=== PATIENT | female | born 1935 | race Caucasian/White ===

== ENCOUNTER 2018-06-25 15:08 | Inpatient (IN) ==
[2018-06-25] MEDS ORDERED: ZOFRAN INJ 4 MG VIAL IVP PRN (16:12)
[2018-06-25] MEDS: MORPHINE SULFATE INJ 2 MG INJ IVP PRN ×2 (16:39→21:01)
[2018-06-25 17:12] LABS: BASOPHILS # (AUTO) 0.1 X10^3/uL (0.0-0.1); BASOPHILS % (AUTO) 0.5 % (0.2-1.0); EOSINOPHILS # (AUTO) 0.1 x10^3/uL (0.0-0.2); EOSINOPHILS % (AUTO) 0.5 % (0.9-2.9); HEMATOCRIT 38.4 % (36.0-47.0); LYMPHOCYTES # (AUTO) 0.9 X10^3/uL (1.3-2.9); LYMPHOCYTES % (AUTO) 8.7 % (21.0-51.0); MEAN CORPUSCULAR HEMOGLOBIN 32.1 pg (27.0-34.0); MEAN CORPUSCULAR HGB CONC 33.9 g/dL (33.0-35.0); MEAN CORPUSCULAR VOLUME 94.7 fL (80.0-100.0); MEAN PLATELET VOLUME 10.6 fL (7.4-11.0); MONOCYTES # (AUTO) 0.5 x10^3/uL (0.3-0.8); MONOCYTES % (AUTO) 4.7 % (0.0-13.0); NEUTROPHILS # (AUTO) 8.8 x10^3/uL (2.2-4.8); NEUTROPHILS % (AUTO) 85.6 % (42.0-75.0); PLATELET COUNT 195 X10^3/uL (150.0-450.0); RED BLOOD COUNT 4.06 X10^6/uL (3.5-5.4); RED CELL DISTRIBUTION WIDTH 13.7 % (11.6-16.5); WHITE BLOOD COUNT 10.2 X10^3/uL (3.6-10.0)
[2018-06-25 17:24] LABS: ALANINE AMINOTRANSFERASE 19 Units/L (12-78); ALBUMIN 3.4 g/dL (3.4-5.0); ALKALINE PHOSPHATASE 37 Units/L (46-116); ASPARTATE AMINO TRANSFERASE 21 Units/L (15-37); BLOOD UREA NITROGEN 27 mg/dL (7-18); CARBON DIOXIDE 27.4 mmol/L (21-32); CHLORIDE 104 mmol/L (98-107); COR NA(FOR HYPERGLY) 138 mmol/L (136-145); CREATININE 1.79 mg/dL (0.55-1.02); SODIUM 138 mmol/L (136-145); TOTAL PROTEIN 6.8 g/dL (6.4-8.2); eGFR NON BLACK RACES 29 (>60)
--- NOTE | 2018-06-25 18:01 | RAD ---
Examination: Right hip, two views History: Hip pain after fall Findings: There is no evidence for fracture or dislocation. The joint space is normal for advanced ag e. Impression: No acute right hip injury demonstrated. Reported By:
--- NOTE | 2018-06-25 18:02 | RAD ---
Three views of the right knee Indication: Fall with right knee pain. Conclusion: There is moderate to advanced lateral femorotibial degenerative changes. There is mild me dial femorotibial and patellofemoral degenerative changes. Small joint effusion is seen. Osteochondra l body likely lies within a popliteal cyst. No fracture or malalignment noted. Reported By:
--- NOTE | 2018-06-25 18:05 | RAD ---
HISTORY: Fall with low back pain. Study: 5 views of the lumbar spine. Comparison: None. Findings: 5 non-rib bearing lumbar vertebra. Mild/moderate levocurvature of the lumbar spine, which may repres ent positioning versus muscle spasm. No acute fracture or listhesis. Multilevel moderate to severe d isc space narrowing with associated endplate sclerosis and anterior disc osteophyte complexes. Multil evel facet arthrosis. Diffuse osteopenia. The SI joints demonstrate mild osteoarthritis. Vascular virgil cifications without evidence of aneurysmal dilatation. IMPRESSION: No acute osseous abnormality. Reported By:
--- NOTE | 2018-06-25 18:40 | RAD ---
Three views of the sacrum Indication: Fall with hip and back pain. Conclusion: No sacral fractures are seen. Visualized lumbar spine demonstrates advanced discogenic de generative disease. Reported By:
[2018-06-25] MEDS ORDERED: NS 1000 ML 1,000 ML ONE (18:44)
[2018-06-25] MEDS: NS 1000 ML 1,000 ML IV SCH (18:46)
[2018-06-25 21:38] VITALS: BMI 27.4
[2018-06-26] MEDS: LOPRESSOR TAB 50 MG PO SCH ×3 (00:06→21:43)
[2018-06-26] MEDS: ZANAFLEX PO PRN ×3 (00:06→21:54)
[2018-06-26 00:32] LABS: BILIRUBIN,URINE NEGATIVE (NEGATIVE); BLOOD/HEMOGLOBIN,URINE 1+ (NEGATIVE); GLUCOSE, URINE NEGATIVE (NEGATIVE); KETONES,URINE NEGATIVE (NEGATIVE); LEUKOCYTE ESTERASE ,URINE 2+ (NEGATIVE); NITRITES,URINE POSITIVE (NEGATIVE); PROTEIN,URINE 1+ (NEGATIVE); UROBILINOGEN,URINE 1+ (NORMAL)
[2018-06-26 00:59] LABS: APPEARANCE,URINE CLOUDY (CLEAR); COLOR,URINE YELLOW (YELLOW)
[2018-06-26 01:00] LABS: AMORPHOUS SEDIMENT,UR 1+ /HPF (NEGATIVE); BACTERIA,URINE 2+ /HPF (NEGATIVE); MUCUS,URINE FEW /HPF (NEGATIVE); SQUAMOUS EPITHELIAL CELL,UR FEW /HPF (NEGATIVE)
[2018-06-26 06:11] LABS: ALBUMIN 2.5 g/dL (3.4-5.0); CALCIUM 7.9 mg/dL (8.5-10.1); CARBON DIOXIDE 29.2 mmol/L (21-32); COR CA(FOR HYPOALB) 9.1 mg/dL (8.5-10.1); CREATININE 1.72 mg/dL (0.55-1.02); TOTAL PROTEIN 5.3 g/dL (6.4-8.2)
[2018-06-26 06:16] LABS: BASOPHILS # (AUTO) 0.1 X10^3/uL (0.0-0.1); BASOPHILS % (AUTO) 0.7 % (0.2-1.0); EOSINOPHILS # (AUTO) 0.1 x10^3/uL (0.0-0.2); EOSINOPHILS % (AUTO) 1.8 % (0.9-2.9); HEMATOCRIT 30.9 % (36.0-47.0); HEMOGLOBIN 10.6 g/dL (12.0-16.0); LYMPHOCYTES # (AUTO) 1.5 X10^3/uL (1.3-2.9); MEAN CORPUSCULAR HEMOGLOBIN 32.8 pg (27.0-34.0); MEAN CORPUSCULAR HGB CONC 34.3 g/dL (33.0-35.0); MEAN CORPUSCULAR VOLUME 95.7 fL (80.0-100.0); MEAN PLATELET VOLUME 10.7 fL (7.4-11.0); MONOCYTES # (AUTO) 0.6 x10^3/uL (0.3-0.8); MONOCYTES % (AUTO) 8.1 % (0.0-13.0); NEUTROPHILS # (AUTO) 5.1 x10^3/uL (2.2-4.8); NEUTROPHILS % (AUTO) 69.4 % (42.0-75.0); PLATELET COUNT 145 X10^3/uL (150.0-450.0); RED BLOOD COUNT 3.23 X10^6/uL (3.5-5.4); WHITE BLOOD COUNT 7.4 X10^3/uL (3.6-10.0)
[2018-06-26] MEDS ORDERED: NS 250 ML IV 250 ML IV ONE (07:54)
[2018-06-26] MEDS ORDERED: ZESTRIL TAB 20 MG ONE (08:40)
[2018-06-26] MEDS: EVISTA PO SCH (08:54)
[2018-06-26] MEDS: ROCEPHIN VIAL 1 GRAM 1 G in NS 100 ML IV + SPIKE MINIBAG* 100 ML IV SCH (08:55)
[2018-06-26] MEDS: PROTONIX TAB 40 MG PO SCH (08:55)
[2018-06-26] MEDS: ZESTRIL TAB 20 MG PO SCH (08:55)
[2018-06-26] MEDS: NS 1000 ML 1,000 ML IV SCH ×2 (09:01→21:00)
[2018-06-26] MEDS: PATIENT'S HOME MEDICATION (Fenofibrate [Fenofibrate] 1 TAB) PO SCH (09:02)
[2018-06-26] MEDS: MORPHINE SULFATE INJ 2 MG INJ IVP PRN ×2 (12:18→21:54)
--- NOTE | 2018-06-26 16:48 | MRI ---
MRI right knee without contrast Indication: Right knee pain with recent fall Technique: Multiplanar, multi sequence imaging of the right knee without IV contrast administration. Comparison: Radiograph performed on 06/25/2018 Findings: Examination is limited by motion artifact. The extensor mechanism is intact. There appears to be moderate potentially high-grade diffuse cartilage thinning of the patellofemoral compartment; h owever again limited evaluation given motion. The patella is minimally subluxed laterally however thi s is likely in the setting of a large joint effusion. The medial and lateral retinacular complexes ar e intact. Osteophytes are noted within the medial and lateral femoral trochlear sulcus. There is a mo derate-sized popliteal fossa cyst containing a large osteochondral body within the cyst measuring roula roximately 19 mm in greatest dimension on sagittal image 23. The pes anserine tendons are intact. The popliteus muscle and tendon are also intact. The lateral femorotibial compartment demonstrates full-thickness diffuse cartilage loss with subcorti virgil cyst formation and large osteophytes consistent with advanced osteoarthrosis. There is also subch ondral bone marrow edema with linear decreased T1 and T2 signal within the subchondral bone plate of the lateral tibial plateau without significant depression of the articular surface most consistent wi th a subchondral insufficiency fracture however this does not appear acute. The medial femorotibial compartment demonstrates moderate chondral thinning and near full-thickness c artilage fissuring within the femoral articular cartilage. There is also very mild subchondral cystic change within the femoral condyle and mild edema within the medial most aspect of the tibial plateau . Small surface osteophytes are noted. 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 PCL demo nstrates thickening and decreased signal consistent scarring without evidence of acute tear. The supe rficial MCL also demonstrates mild thickening with surrounding edema likely representing low-grade st rain in the setting of chronic scarring/fibrosis. Fibular collateral ligament is intact. The biceps f emoris and iliotibial band are intact. The lateral meniscus demonstrates macerated tear of the anterior horn and body with moderate displace ment the residual anterior horn and body meniscal tissue extruded posteriorly. The posterior horn rem ains intact however there is macerated tear of the posterior horn and root. The medial meniscus demon strates diffuse degenerative signal with mild central free edge truncation; however, there is no acut e or displaced meniscal tear. Markedly enlarged and thickened medial patellar plica extending across the suprapatellar pouch. Impression: 1. Advanced lateral femorotibial compartment osteoarthrosis with full-thickness cartilage loss, there is mild linear bone marrow edema with associated T1 decreased signal within subchondral bone plate o f the lateral tibial plateau consistent with a insufficiency fracture, given the lack of adjacent bon e marrow edema this is almost certainly to represent a chronic insufficiency fracture. There is no di splaced fracture fragment or depression of the lateral tibial plateau articular surface. 2. Severely macerated and displaced tear of the lateral meniscal anterior horn and body with residual body and anterior horn displaced posteriorly adjacent to the posterior horn. The intact posterior ho rn is macerated with degenerative signal consistent with chronic tear. 3. Moderate patellofemoral and medial femorotibial compartment osteoarthrosis. 4. 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 5. Scarring/fibrosis within the PCL and superficial MCL however given the edema both deep and superfi cial to the superficial MCL this likely represents an acute on chronic MCL sprain. 6. Moderate sized popliteal fossa cyst with large osteochondral body within the popliteal fossa. 7. Degenerative signal and central free edge truncation of the medial meniscus without acute or displ aced meniscal tear. 8. Markedly enlarged and thickened medial patellar plica extending across the entire superior suprapa tellar pouch. Reported By:
--- NOTE | 2018-06-26 19:30 | DR.UPDATE ---
H&P Update History and Physical Update: WAS SEEN IN THE OFFICE TODAY. A H&P WAS COMPLETED PRIOR TO ADMISSION. PATIENT HAS BEEN SEEN AND EXAMINED WITH NO CHANGES NOTED TO H&P. Changes noted: NO Yes with the following:
[2018-06-26] MEDS: CALAN SR 240 MG PO SCH (21:43)
[2018-06-27 05:50] LABS: BASOPHILS # (AUTO) 0.1 X10^3/uL (0.0-0.1); BASOPHILS % (AUTO) 0.9 % (0.2-1.0); EOSINOPHILS # (AUTO) 0.3 x10^3/uL (0.0-0.2); EOSINOPHILS % (AUTO) 4.9 % (0.9-2.9); HEMATOCRIT 34.7 % (36.0-47.0); HEMOGLOBIN 11.7 g/dL (12.0-16.0); LYMPHOCYTES # (AUTO) 1.4 X10^3/uL (1.3-2.9); LYMPHOCYTES % (AUTO) 21.5 % (21.0-51.0); MEAN CORPUSCULAR HEMOGLOBIN 32.1 pg (27.0-34.0); MEAN CORPUSCULAR HGB CONC 33.7 g/dL (33.0-35.0); MEAN CORPUSCULAR VOLUME 95.3 fL (80.0-100.0); MEAN PLATELET VOLUME 10.4 fL (7.4-11.0); MONOCYTES # (AUTO) 0.6 x10^3/uL (0.3-0.8); MONOCYTES % (AUTO) 8.9 % (0.0-13.0); NEUTROPHILS # (AUTO) 4.3 x10^3/uL (2.2-4.8); NEUTROPHILS % (AUTO) 63.8 % (42.0-75.0); PLATELET COUNT 167 X10^3/uL (150.0-450.0); RED BLOOD COUNT 3.64 X10^6/uL (3.5-5.4); WHITE BLOOD COUNT 6.7 X10^3/uL (3.6-10.0)
[2018-06-27 06:05] LABS: ALANINE AMINOTRANSFERASE 21 Units/L (12-78); ALBUMIN 2.7 g/dL (3.4-5.0); ALKALINE PHOSPHATASE 33 Units/L (46-116); ASPARTATE AMINO TRANSFERASE 22 Units/L (15-37); BLOOD UREA NITROGEN 21 mg/dL (7-18); CARBON DIOXIDE 25.4 mmol/L (21-32); CHLORIDE 108 mmol/L (98-107); CREATININE 1.44 mg/dL (0.55-1.02); SODIUM 139 mmol/L (136-145); eGFR NON BLACK RACES 37 (>60)
[2018-06-27] MEDS: NS 1000 ML 1,000 ML IV SCH ×2 (06:05→17:25)
[2018-06-27] MEDS ORDERED: ZESTRIL TAB 20 MG ONE (08:20)
[2018-06-27] MEDS: ZESTRIL TAB 20 MG PO SCH (08:37)
[2018-06-27] MEDS: LOPRESSOR TAB 50 MG PO SCH ×2 (08:37→21:30)
[2018-06-27] MEDS: EVISTA PO SCH (08:37)
[2018-06-27] MEDS: ROCEPHIN VIAL 1 GRAM 1 G in NS 100 ML IV + SPIKE MINIBAG* 100 ML IV SCH (08:44)
[2018-06-27] MEDS: PROTONIX TAB 40 MG PO SCH (08:44)
[2018-06-27] MEDS: PATIENT'S HOME MEDICATION (Fenofibrate [Fenofibrate] 1 TAB) PO SCH (08:45)
--- NOTE | 2018-06-27 11:22 | PCM.PROG ---
Progress Note - Progress Note for Day of Date of Exam: 06/26/18 - Subjective Subjective: WAS ADMITTED FOLLING A FALL AT HOME. SHE COMPLAINS OF SEVERE PAIN TO THE RIGHT KNEE. SHE ALSO REPORTS AN ACHING PAIN TO THE LOWER BACK AND RIGHT HIP. ON EXAMINATION, HEART IS REGULAR IN RATE AND RHYTHM. BILATERAL LUNGS ARE NOTED TO BE CLEAR TO AUSCULTATION. ABDOMEN IS ROUND, SOFT, AND NOTED WITH MILD SUPRAPUBIC TENDERNESS TO PALPATION. SHE IS NOTED WITH LUMBAR TENDERNESS. RIGHT KNEE IS NOTED TO BE SWOLLEN AND TENDER TO TOUCH WITH DECREASED RANGE OF MOTION. SHE REPORTS BEING UNSTEADY ON AMBULATION DUE TO PAIN. HER VITALS TODAY ARE 98.2-68-20-97%-119/56. LABS WERE OBTAINED. ABNORMAL LAB VALUES INCLUDE THE FOLLOWING: RBC 3.23, HGB 10.6, HCT 30.9, BUN 27, CREATININE 1.72, GLUCOSE 114, CALCIUM 7.9, ALK PHOS 28, TOTAL PROTEIN 5.3, ALBUMIN 2.5. URINALYSIS OBTAINED ON ADMISSION REVEALED WBC 20-30, RBC 5-10, LEUKOCYTES 2+, BACTERIA 2+. RIGHT KNEE XRAY OBTAINED ON ADMISSION REVEALED: There is moderate to advanced lateral femorotibial degenerative changes. There is mild medial femorotibial and patellofemoral degenerative changes. Small joint effusion is seen. Osteochondral body likely lies within a popliteal cyst. No fracture or malalignment noted. TODAY, WE WILL OBTAIN A MRI OF THE RIGHT KNEE , START NORMAL SALINE AT 100ML/HR, AND ROCEPHIN 1GM IV DAILY. OTHERWISE, WE WILL CONTINUE WITH CURRENT PLAN OF CARE. WE WILL FOLLOW UP WITH AM LABS AND CONTINUE TO MONITOR PATIENT. - Past Medical Family Social History Past Med/Fam/Surg Hx: No changes since H&P Allergies: Allergies No Known Drug Allergies Allergy (Verified 06/25/18 16:41) - Review of Systems ROS: No change since H&P - Vital Signs and I&O's Vital Signs: Temperature 97.9 F Pulse Rate [Right Brachial] 73 Respiratory Rate 18 Blood Pressure [Right Arm] 148/66 Blood Pressure 113/56 O2 Sat by Pulse Oximetry 99 Intake and Output: Intake & Output 06/24/18 06/25/18 06/26/18 06/27/18 11:59 11:59 11:59 11:59 Intake Total 860 / 860 2380 / 2380 Output Total 800 / 800 Balance 60 / 60 2380 / 2380 - Physical Exam Oriented: Normal Eyes: Normal Ear: Normal Nose: Normal Throat: Normal Respiratory: Normal Cardiovascular: Normal : Normal Auscultation: Bowel Sounds: Normal Palpation: Normal Tenderness: Suprapubic, Mild Skin: Red, Tender (RIGHT KNEE ), Bruising Musculoskeletal: Right, Hip, Leg, Back:Lumbar, Swelling, Tender, Instability Psychiatric: Normal Mood Description: Calm Affect: Normal Speech Pattern: Clear, Appropriate - Laboratory and Diagnostics Result Diagrams: 06/27/18 05:00 06/27/18 05:00 Labs: 06/26/18 00:07 Urine,Clean Catch Urine Culture - Preliminary Laboratory WBC 6.7 X10^3/uL (3.6-10.0) 06/27/18 05:00 RBC 3.64 X10^6/uL (3.5-5.4) 06/27/18 05:00 Hgb 11.7 g/dL (12.0-16.0) L 06/27/18 05:00 Hct 34.7 % (36.0-47.0) L 06/27/18 05:00 MCV 95.3 fL (80.0-100.0) 06/27/18 05:00 MCH 32.1 pg (27.0-34.0) 06/27/18 05:00 MCHC 33.7 g/dL (33.0-35.0) 06/27/18 05:00 RDW 14.0 % (11.6-16.5) 06/27/18 05:00 Plt Count 167 X10^3/uL (150.0-450.0) 06/27/18 05:00 MPV 10.4 fL (7.4-11.0) 06/27/18 05:00 Neut % (Auto) 63.8 % (42.0-75.0) 06/27/18 05:00 Lymph % (Auto) 21.5 % (21.0-51.0) 06/27/18 05:00 [place] % (Auto) 8.9 % (0.0-13.0) 06/27/18 05:00 Eos % (Auto) 4.9 % (0.9-2.9) H 06/27/18 05:00 Baso % (Auto) 0.9 % (0.2-1.0) 06/27/18 05:00 Neut # (Auto) 4.3 x10^3/uL (2.2-4.8) 06/27/18 05:00 Lymph # (Auto) 1.4 X10^3/uL (1.3-2.9) 06/27/18 05:00 [place] # (Auto) 0.6 x10^3/uL (0.3-0.8) 06/27/18 05:00 Eos # (Auto) 0.3 x10^3/uL (0.0-0.2) H 06/27/18 05:00 Baso # (Auto) 0.1 X10^3/uL (0.0-0.1) 06/27/18 05:00 Absolute Nucleated RBC 0.0 /100WBC 06/27/18 05:00 Sodium 139 mmol/L (136-145) 06/27/18 05:00 Corrected Sodium TNP 06/27/18 05:00 Potassium 3.7 mmol/L (3.5-5.1) 06/27/18 05:00 Chloride 108 mmol/L (98-107) H 06/27/18 05:00 Carbon Dioxide 25.4 mmol/L (21-32) 06/27/18 05:00 BUN 21 mg/dL (7-18) H 06/27/18 05:00 Creatinine 1.44 mg/dL (0.55-1.02) H 06/27/18 05:00 Est GFR (MDRD) Af Amer 45 (>60) L 06/27/18 05:00 Est GFR (MDRD) Non-Af 37 (>60) L 06/27/18 05:00 Glucose 85 mg/dL (65-99) 06/27/18 05:00 Calcium 8.0 mg/dL (8.5-10.1) L 06/27/18 05:00 Corrected Calcium 9.0 mg/dL (8.5-10.1) 06/27/18 05:00 Total Bilirubin 0.70 mg/dL (0.2-1.0) 06/27/18 05:00 AST 22 Units/L (15-37) 06/27/18 05:00 ALT 21 Units/L (12-78) 06/27/18 05:00 Alkaline Phosphatase 33 Units/L (46-116) L 06/27/18 05:00 Total Protein 6.0 g/dL (6.4-8.2) L 06/27/18 05:00 Albumin 2.7 g/dL (3.4-5.0) L 06/27/18 05:00 Globulin 3.3 g/dL (2.5-4.5) 06/27/18 05:00 Albumin/Globulin Ratio 0.8 Ratio (1.1-2.1) L 06/27/18 05:00 Specimen Type Clean catch urine 06/26/18 00:07 Urine Color Yellow (YELLOW) 06/26/18 00:07 Urine Appearance Cloudy (CLEAR) 06/26/18 00:07 Urine pH 6.0 (5.0 - 8.0) 06/26/18 00:07 Ur Specific [place] 1.020 (1.000-1.030) 06/26/18 00:07 Urine Protein 1+ (NEGATIVE) 06/26/18 00:07 Urine Glucose (UA) Negative (NEGATIVE) 06/26/18 00:07 Urine Ketones Negative (NEGATIVE) 06/26/18 00:07 Urine Occult Blood 1+ (NEGATIVE) 06/26/18 00:07 Urine Nitrite Positive (NEGATIVE) 06/26/18 00:07 Urine Bilirubin Negative (NEGATIVE) 06/26/18 00:07 Urine Urobilinogen 1+ (NORMAL) 06/26/18 00:07 Ur Leukocyte Esterase 2+ (NEGATIVE) 06/26/18 00:07 Urine RBC 5-10 /HPF (NONE SEEN) 06/26/18 00:07 Urine WBC 20-30 /HPF (NONE SEEN) 06/26/18 00:07 Ur Squamous Epith Cells Few /HPF (NEGATIVE) 06/26/18 00:07 Amorphous Sediment 1+ /HPF (NEGATIVE) 06/26/18 00:07 Urine Bacteria 2+ /HPF (NEGATIVE) 06/26/18 00:07 Urine Mucus Few /HPF (NEGATIVE) 06/26/18 00:07 Ur Culture Indicated? Yes/culture set up 06/26/18 00:07 - Plan (1) Fall Status: Acute Qualifiers: Encounter type: initial encounter Qualified Code(s): W19.XXXA - Unspecified fall, initial encounter (2) Right knee pain Status: Acute Qualifiers: Chronicity: acute Qualified Code(s): M25.561 - Pain in right knee Plan: MORPHINE PRN PAIN, OBTAIN MRI TODAY, CONTINUE TO MONITOR (3) Dehydration Status: Acute Plan: NORMAL SALINE AT 100ML/HR, CONTINUE TO MONITOR (4) Urinary tract infection Status: Acute Qualifiers: Urinary tract infection type: acute cystitis Hematuria presence: without hematuria Qualified Code(s): N30.00 - Acute cystitis without hematuria Plan: ROCEPHIN 1GM IV DAILY, NS AT 100ML/HR, CONTINUE TO MONITOR
--- NOTE | 2018-06-27 11:24 | DR.CONSULT ---
Consult - Consultation for Day of: Date: 06/27/18 - Chief Complaint Chief Complaint: rt knee pain and swelling - History of Present Illness History of Present Illness: h/o fall at home. sustained rt knee injury. kco rt knee oa in the past. rt knee xr normal. MRI shows a insufficancy fracture involving the tibial lat condyle. non displaced. seen in ER. admited under medical and consult placed for me. unable to walk due to pain. rt knee effusion. - Past Medical History Past Medical History: GERD, Hypertension - Past Surgical History Surgical History: Hysterectomy - Family History Family Medical History: Hypertension - Social History Alcohol Use: Rarely Drug Use: None - Medications Home Medications: No Known Drug Allergies Allergy (Verified 06/25/18 16:41) CONTINUE taking the following medications fenofibrate 1 tab PO DAILY 06/25/18 [History] hydrochlorothiazide 25 mg PO DAILY 06/25/18 [History] lisinopril 20 mg PO DAILY 06/25/18 [History] metoprolol tartrate 50 mg PO BID 06/25/18 [History] pantoprazole 40 mg PO DAILY 06/25/18 [History] raloxifene 60 mg PO DAILY 06/25/18 [History] verapamil 240 mg PO HS 06/25/18 [History] - Review of Systems Musculoskeletal: See HPI - Physical Exam Vital Signs: Temperature 97.9 F Pulse Rate [Right Brachial] 73 Respiratory Rate 18 Blood Pressure [Right Arm] 148/66 Blood Pressure 113/56 O2 Sat by Pulse Oximetry 99 Musculoskeletal: Right, Knee, Swelling, Tender (stable, rom not tested due to pain. distal nv intact. ) - Plan Plan: non weight bearing till further advise. wheelc hair mobilization. knee brace till further advise. no ROM till further advicse. follow up in office in 2 weeks. Xrays on arrial. - Allergies Allergies/Adverse Reactions: Allergies Allergy/AdvReac Type Severity Reaction Status Date / Time No Known Drug Allergies Allergy Verified 06/25/18 16:41
[2018-06-27] MEDS: ZANAFLEX PO PRN (13:55)
[2018-06-27] MEDS: TORADOL 15 MG VIAL IVP SCH ×3 (17:25→22:00)
[2018-06-27] MEDS: CALAN SR 240 MG PO SCH (21:30)
--- NOTE | 2018-06-27 21:59 | PCM.PROG ---
Progress Note - Progress Note for Day of Date of Exam: 06/27/18 - Subjective Subjective: WAS ADMITTED FOLLOWING A FALL AT HOME. SHE CONTINUES WITH COMPLAINTS OF SEVERE PAIN TO THE RIGHT KNEE. SHE REPORTS THAT BACK PAIN AND RIGHT HIP PAIN HAS SLIGHTLY IMPROVED. ON EXAMINATION, HEART IS REGULAR IN RATE AND RHYTHM. BILATERAL LUNGS ARE NOTED TO BE CLEAR TO AUSCULTATION. ABDOMEN IS ROUND, SOFT, AND NOTED WITH MILD SUPRAPUBIC TENDERNESS TO PALPATION. SHE IS NOTED WITH MILD LUMBAR TENDERNESS. RIGHT KNEE CONTINUES TO BE SWOLLEN AND TENDER TO TOUCH WITH DECREASED RANGE OF MOTION. SHE REPORTS SEVERE PAIN AND UNSTEADY GAIT ON AMBULATION. HER VITALS TODAY ARE 97.9-73-18-99%-148/66. LABS WERE OBTAINED. ABNORMAL LAB VALUES INCLUDE THE FOLLOWING: HGB 11.7, HCT 34.7, CHLORIDE 108, BUN 21, CREATININE 1.44, CALCIUM 8.0, ALK PHOS 33, TOTAL PROTEIN 6.0, ALBUMIN 2.7. WE OBTAINED A MRI OF THE KNEE YESTERDAY. IT REVEALED: Advanced lateral femorotibial compartment osteoarthrosis with full-thickness cartilage loss, there is mild linear bone marrow edema with associated T1 decreased signal within subchondral bone plate of the lateral tibial plateau consistent with a insufficiency fracture, given the lack of adjacent bone marrow edema this is almost certainly to represent a chronic insufficiency fracture. There is no displaced fracture fragment or depression of the lateral tibial plateau articular surface. Severely macerated and displaced tear of the lateral meniscal anterior horn and body with residual body and anterior horn displaced posteriorly adjacent to the posterior horn. The intact posterior horn is macerated with degenerative signal consistent with chronic tear. Moderate patellofemoral and medial femorotibial compartment osteoarthrosis. Chronic full- thickness tear of the ACL with scarring and fibrosis. Scarring/fibrosis within the PCL and superficial MCL however given the edema both deep and superficial to the superficial MCL this likely represents an acute on chronic MCL sprain. Moderate sized popliteal fossa cyst with large osteochondral body within the popliteal fossa. Degenerative signal and central free edge truncation of the medial meniscus without acute or displaced meniscal tear. enlarged and thickened medial patellar plica extending across the entire superior suprapatellar pouch. WE CONSULTED . HE RECOMMENDED A KNEE IMMOBILIZER AND NON-WEIGHT BEARING UNTIL FURTHER NOTICE. TODAY, WE WILL CONTINUE WITH PAIN CONTROL, PHYSICAL THERAPY, AND CURRENT PLAN OF CARE. OTHERWISE, WE WILL FOLLOW UP WITH AM LABS AND CONTINUE TO MONITOR PATIENT. - Past Medical Family Social History Past Med/Fam/Surg Hx: No changes since H&P Allergies: Allergies No Known Drug Allergies Allergy (Verified 06/25/18 16:41) - Review of Systems ROS: No change since H&P - Vital Signs and I&O's Vital Signs: Temperature 98.7 F Pulse Rate [Right Brachial] 68 Respiratory Rate 18 Blood Pressure [Right Arm] 142/65 Blood Pressure 113/56 O2 Sat by Pulse Oximetry 98 Intake and Output: Intake & Output 06/25/18 06/26/18 06/27/18 06/28/18 11:59 11:59 11:59 11:59 Intake Total 860 / 860 2380 / 2380 1354 / 1354 Output Total 800 / 800 Balance 60 / 60 2380 / 2380 1354 / 1354 - Physical Exam Oriented: Normal Eyes: Normal Ear: Normal Nose: Normal Throat: Normal Respiratory: Normal Cardiovascular: Normal : Normal Auscultation: Bowel Sounds: Normal Palpation: Normal Tenderness: Suprapubic, Mild Skin: Red, Tender (RIGHT KNEE ), Bruising Musculoskeletal: Right, Knee, Swelling, Tender (stable, rom not tested due to pain. distal nv intact. ) Psychiatric: Normal Mood Description: Calm Affect: Normal Speech Pattern: Clear, Appropriate - Laboratory and Diagnostics Result Diagrams: 06/27/18 05:00 06/27/18 05:00 Labs: 06/26/18 00:07 Urine,Clean Catch Urine Culture - Preliminary Laboratory WBC 6.7 X10^3/uL (3.6-10.0) 06/27/18 05:00 RBC 3.64 X10^6/uL (3.5-5.4) 06/27/18 05:00 Hgb 11.7 g/dL (12.0-16.0) L 06/27/18 05:00 Hct 34.7 % (36.0-47.0) L 06/27/18 05:00 MCV 95.3 fL (80.0-100.0) 06/27/18 05:00 MCH 32.1 pg (27.0-34.0) 06/27/18 05:00 MCHC 33.7 g/dL (33.0-35.0) 06/27/18 05:00 RDW 14.0 % (11.6-16.5) 06/27/18 05:00 Plt Count 167 X10^3/uL (150.0-450.0) 06/27/18 05:00 MPV 10.4 fL (7.4-11.0) 06/27/18 05:00 Neut % (Auto) 63.8 % (42.0-75.0) 06/27/18 05:00 Lymph % (Auto) 21.5 % (21.0-51.0) 06/27/18 05:00 [place] % (Auto) 8.9 % (0.0-13.0) 06/27/18 05:00 Eos % (Auto) 4.9 % (0.9-2.9) H 06/27/18 05:00 Baso % (Auto) 0.9 % (0.2-1.0) 06/27/18 05:00 Neut # (Auto) 4.3 x10^3/uL (2.2-4.8) 06/27/18 05:00 Lymph # (Auto) 1.4 X10^3/uL (1.3-2.9) 06/27/18 05:00 [place] # (Auto) 0.6 x10^3/uL (0.3-0.8) 06/27/18 05:00 Eos # (Auto) 0.3 x10^3/uL (0.0-0.2) H 06/27/18 05:00 Baso # (Auto) 0.1 X10^3/uL (0.0-0.1) 06/27/18 05:00 Absolute Nucleated RBC 0.0 /100WBC 06/27/18 05:00 Sodium 139 mmol/L (136-145) 06/27/18 05:00 Corrected Sodium TNP 06/27/18 05:00 Potassium 3.7 mmol/L (3.5-5.1) 06/27/18 05:00 Chloride 108 mmol/L (98-107) H 06/27/18 05:00 Carbon Dioxide 25.4 mmol/L (21-32) 06/27/18 05:00 BUN 21 mg/dL (7-18) H 06/27/18 05:00 Creatinine 1.44 mg/dL (0.55-1.02) H 06/27/18 05:00 Est GFR (MDRD) Af Amer 45 (>60) L 06/27/18 05:00 Est GFR (MDRD) Non-Af 37 (>60) L 06/27/18 05:00 Glucose 85 mg/dL (65-99) 06/27/18 05:00 Calcium 8.0 mg/dL (8.5-10.1) L 06/27/18 05:00 Corrected Calcium 9.0 mg/dL (8.5-10.1) 06/27/18 05:00 Total Bilirubin 0.70 mg/dL (0.2-1.0) 06/27/18 05:00 AST 22 Units/L (15-37) 06/27/18 05:00 ALT 21 Units/L (12-78) 06/27/18 05:00 Alkaline Phosphatase 33 Units/L (46-116) L 06/27/18 05:00 Total Protein 6.0 g/dL (6.4-8.2) L 06/27/18 05:00 Albumin 2.7 g/dL (3.4-5.0) L 06/27/18 05:00 Globulin 3.3 g/dL (2.5-4.5) 06/27/18 05:00 Albumin/Globulin Ratio 0.8 Ratio (1.1-2.1) L 06/27/18 05:00 Specimen Type Clean catch urine 06/26/18 00:07 Urine Color Yellow (YELLOW) 06/26/18 00:07 Urine Appearance Cloudy (CLEAR) 06/26/18 00:07 Urine pH 6.0 (5.0 - 8.0) 06/26/18 00:07 Ur Specific [place] 1.020 (1.000-1.030) 06/26/18 00:07 Urine Protein 1+ (NEGATIVE) 06/26/18 00:07 Urine Glucose (UA) Negative (NEGATIVE) 06/26/18 00:07 Urine Ketones Negative (NEGATIVE) 06/26/18 00:07 Urine Occult Blood 1+ (NEGATIVE) 06/26/18 00:07 Urine Nitrite Positive (NEGATIVE) 06/26/18 00:07 Urine Bilirubin Negative (NEGATIVE) 06/26/18 00:07 Urine Urobilinogen 1+ (NORMAL) 06/26/18 00:07 Ur Leukocyte Esterase 2+ (NEGATIVE) 06/26/18 00:07 Urine RBC 5-10 /HPF (NONE SEEN) 06/26/18 00:07 Urine WBC 20-30 /HPF (NONE SEEN) 06/26/18 00:07 Ur Squamous Epith Cells Few /HPF (NEGATIVE) 06/26/18 00:07 Amorphous Sediment 1+ /HPF (NEGATIVE) 06/26/18 00:07 Urine Bacteria 2+ /HPF (NEGATIVE) 06/26/18 00:07 Urine Mucus Few /HPF (NEGATIVE) 06/26/18 00:07 Ur Culture Indicated? Yes/culture set up 06/26/18 00:07 - Plan (1) Fall Status: Acute Qualifiers: Encounter type: initial encounter Qualified Code(s): W19.XXXA - Unspecified fall, initial encounter (2) Right knee pain Status: Acute Qualifiers: Chronicity: acute Qualified Code(s): M25.561 - Pain in right knee Plan: IV PAIN CONTROL, CONTINUE TO MONITOR (3) Dehydration Status: Acute Plan: NORMAL SALINE AT 100ML/HR, CONTINUE TO MONITOR (4) Urinary tract infection Status: Acute Qualifiers: Urinary tract infection type: acute cystitis Hematuria presence: without hematuria Qualified Code(s): N30.00 - Acute cystitis without hematuria Plan: ROCEPHIN 1GM IV DAILY, NS AT 100ML/HR, CONTINUE TO MONITOR
[2018-06-28] MEDS: NS 1000 ML 1,000 ML IV SCH ×3 (03:12→17:02)
[2018-06-28] MEDS: TORADOL 15 MG VIAL IVP SCH ×4 (03:40→21:31)
[2018-06-28 05:12] LABS: BASOPHILS % (AUTO) 0.7 % (0.2-1.0); EOSINOPHILS # (AUTO) 0.3 x10^3/uL (0.0-0.2); EOSINOPHILS % (AUTO) 5.2 % (0.9-2.9); HEMATOCRIT 33.5 % (36.0-47.0); HEMOGLOBIN 11.2 g/dL (12.0-16.0); LYMPHOCYTES # (AUTO) 1.3 X10^3/uL (1.3-2.9); MEAN CORPUSCULAR HEMOGLOBIN 31.6 pg (27.0-34.0); MEAN CORPUSCULAR HGB CONC 33.3 g/dL (33.0-35.0); MEAN CORPUSCULAR VOLUME 94.9 fL (80.0-100.0); MEAN PLATELET VOLUME 10.5 fL (7.4-11.0); MONOCYTES # (AUTO) 0.6 x10^3/uL (0.3-0.8); MONOCYTES % (AUTO) 8.7 % (0.0-13.0); NEUTROPHILS # (AUTO) 4.4 x10^3/uL (2.2-4.8); NEUTROPHILS % (AUTO) 66.4 % (42.0-75.0); PLATELET COUNT 163 X10^3/uL (150.0-450.0); RED BLOOD COUNT 3.53 X10^6/uL (3.5-5.4); RED CELL DISTRIBUTION WIDTH 13.8 % (11.6-16.5); WHITE BLOOD COUNT 6.6 X10^3/uL (3.6-10.0)
[2018-06-28 05:23] LABS: ALANINE AMINOTRANSFERASE 29 Units/L (12-78); ALBUMIN 2.5 g/dL (3.4-5.0); ALKALINE PHOSPHATASE 36 Units/L (46-116); ASPARTATE AMINO TRANSFERASE 32 Units/L (15-37); BLOOD UREA NITROGEN 21 mg/dL (7-18); CARBON DIOXIDE 25.5 mmol/L (21-32); CHLORIDE 111 mmol/L (98-107); COR CA(FOR HYPOALB) 9.2 mg/dL (8.5-10.1); CREATININE 1.42 mg/dL (0.55-1.02); SODIUM 144 mmol/L (136-145); TOTAL PROTEIN 5.8 g/dL (6.4-8.2); eGFR NON BLACK RACES 38 (>60)
[2018-06-28] MEDS ORDERED: K-LYTE EFFERVESCENT PO PRN (06:28)
[2018-06-28] MEDS ORDERED: K-RIDER 10 MEQ/NS 100 ML 10 MEQ/100 ML BAG IV PRN (06:28)
[2018-06-28] MEDS ORDERED: POTASSIUM CHL 60 MEQ/NS 0.45% 500 ML IV PRN (06:28)
[2018-06-28] MEDS ORDERED: POTASSIUM CHL 40 MEQ/NS 0.45% 500 ML IV PRN (06:28)
[2018-06-28] MEDS ORDERED: POTASSIUM CHLORIDE LIQ 20 MEQ UDC PO PRN (06:28)
[2018-06-28] MEDS ORDERED: ZESTRIL TAB 20 MG ONE (08:08)
[2018-06-28] MEDS: PROTONIX TAB 40 MG PO SCH (09:17)
[2018-06-28] MEDS: EVISTA PO SCH (09:17)
[2018-06-28] MEDS: LOPRESSOR TAB 50 MG PO SCH ×2 (09:17→20:56)
[2018-06-28] MEDS: ROCEPHIN VIAL 1 GRAM 1 G in NS 100 ML IV + SPIKE MINIBAG* 100 ML IV SCH (09:17)
[2018-06-28] MEDS: ZESTRIL TAB 20 MG PO SCH (09:17)
[2018-06-28] MEDS: PATIENT'S HOME MEDICATION (Fenofibrate [Fenofibrate] 1 TAB) PO SCH (09:18)
[2018-06-28] MEDS: TRICOR TAB 48 MG PO SCH (09:57)
[2018-06-28] MEDS ORDERED: MILK OF MAGNESIA PO PRN (20:26)
[2018-06-28] MEDS ORDERED: COLACE CAP 100 MG PO PRN (20:26)
[2018-06-28] MEDS: CALAN SR 240 MG PO SCH (20:57)
[2018-06-28] MEDS: ZANAFLEX PO PRN (21:06)
[2018-06-28] MEDS: HYDROCHLOROTHIAZIDE 12.5 MG CAP PO SCH (21:30)
[2018-06-28] MEDS ORDERED: NS 1000 ML 1,000 ML IV SCH (22:00)
[2018-06-29] MEDS: TORADOL 15 MG VIAL IVP SCH ×2 (04:06→09:29)
[2018-06-29 06:00] LABS: ALBUMIN 2.8 g/dL (3.4-5.0); CALCIUM 8.4 mg/dL (8.5-10.1); CARBON DIOXIDE 22.5 mmol/L (21-32); COR CA(FOR HYPOALB) 9.4 mg/dL (8.5-10.1); CREATININE 1.42 mg/dL (0.55-1.02); TOTAL PROTEIN 6.4 g/dL (6.4-8.2)
[2018-06-29 06:09] LABS: BASOPHILS # (AUTO) 0.1 X10^3/uL (0.0-0.1); BASOPHILS % (AUTO) 0.8 % (0.2-1.0); EOSINOPHILS # (AUTO) 0.4 x10^3/uL (0.0-0.2); HEMATOCRIT 36.2 % (36.0-47.0); HEMOGLOBIN 12.1 g/dL (12.0-16.0); LYMPHOCYTES # (AUTO) 1.3 X10^3/uL (1.3-2.9); LYMPHOCYTES % (AUTO) 18.6 % (21.0-51.0); MEAN CORPUSCULAR HEMOGLOBIN 31.9 pg (27.0-34.0); MEAN CORPUSCULAR HGB CONC 33.3 g/dL (33.0-35.0); MEAN CORPUSCULAR VOLUME 95.9 fL (80.0-100.0); MEAN PLATELET VOLUME 10.3 fL (7.4-11.0); MONOCYTES # (AUTO) 0.4 x10^3/uL (0.3-0.8); NEUTROPHILS % (AUTO) 69.6 % (42.0-75.0); PLATELET COUNT 204 X10^3/uL (150.0-450.0); RED BLOOD COUNT 3.77 X10^6/uL (3.5-5.4); WHITE BLOOD COUNT 7.2 X10^3/uL (3.6-10.0)
[2018-06-29] MEDS: ROCEPHIN VIAL 1 GRAM 1 G in NS 100 ML IV + SPIKE MINIBAG* 100 ML IV SCH (08:35)
[2018-06-29] MEDS: PROTONIX TAB 40 MG PO SCH (08:35)
[2018-06-29] MEDS: HYDROCHLOROTHIAZIDE 12.5 MG CAP PO SCH (08:35)
[2018-06-29] MEDS: TRICOR TAB 48 MG PO SCH (08:35)
[2018-06-29] MEDS: EVISTA PO SCH (08:35)
[2018-06-29] MEDS: LOPRESSOR TAB 50 MG PO SCH ×3 (08:35→21:49)
[2018-06-29] MEDS ORDERED: ZESTRIL TAB 20 MG ONE (08:39)
[2018-06-29] MEDS: ZESTRIL TAB 20 MG PO SCH (08:40)
--- NOTE | 2018-06-29 08:52 | RAD ---
HISTORY: Shortness of breath and wheezing. Study: Portable chest. Comparison: Chest x-ray dated July 23, 2014. Findings: The trachea is midline. The cardiac silhouette is at the upper limits of. No obvious focal consolid ation, pleural effusion, or pneumothorax. The bony thorax is unremarkable. IMPRESSION: No acute cardiopulmonary disease. Reported By:
[2018-06-29] MEDS ORDERED: ROBITUSSIN DM PO PRN (17:14)
[2018-06-29] MEDS ORDERED: HYDROCHLOROTHIAZIDE 12.5 MG CAP PO ONE (18:37)
--- NOTE | 2018-06-29 18:39 | PCM.PROG ---
Progress Note - Progress Note for Day of Date of Exam: 06/28/18 - Subjective Subjective: WAS ADMITTED FOLLOWING A FALL AT HOME. MRI REVEALED A FRACTURE OF THE RIGHT KNEE, A MACERATED MENISCUS, AN ACL TEAR, AND A MCL SPRAIN. SHE CONTINUES WITH COMPLAINTS OF SEVERE PAIN TO THE RIGHT KNEE. SHE REPORTS THAT BACK PAIN AND RIGHT HIP PAIN HAS SLIGHTLY IMPROVED. ON EXAMINATION , HEART IS REGULAR IN RATE AND RHYTHM. BILATERAL LUNGS ARE NOTED TO BE CLEAR TO AUSCULTATION. ABDOMEN IS ROUND, SOFT, AND NOTED WITH MILD SUPRAPUBIC TENDERNESS TO PALPATION. SHE IS NOTED WITH MILD LUMBAR TENDERNESS. RIGHT KNEE CONTINUES TO BE SWOLLEN AND TENDER TO TOUCH WITH DECREASED RANGE OF MOTION. SHE REPORTS SEVERE PAIN AND UNSTEADY GAIT ON AMBULATION. HER VITALS TODAY ARE 97.8-70-20-97% -145/67. LABS WERE OBTAINED. ABNORMAL LAB VALUES INCLUDE THE FOLLOWING: HGB 11.2 , HCT 33.5, CHLORIDE 111, BUN 21, CREATININE 1.42, CALCIUM 8.0, ALK PHOS 36, TOTAL PROTEIN 5.8, ALBUMIN 2.5. SHE CONTINUES WITH PHYSICAL THERAPY. PATIENT HAS DIFFICULTY AMBULATING FOR LONG DISTANCES WITHOUT SEVERE PAIN. SHE WILL REQUIRE A BEDSIDE COMMODE AND WALKER AT HOME. TODAY, WE WILL START TORADOL 15MG IV Q6H BRI. OTHERWISE, WILL CONTINUE WITH PAIN CONTROL, PHYSICAL THERAPY, AND CURRENT PLAN OF CARE. WE WILL FOLLOW UP WITH AM LABS AND CONTINUE TO MONITOR PATIENT. - Past Medical Family Social History Past Med/Fam/Surg Hx: No changes since H&P Allergies: Allergies No Known Drug Allergies Allergy (Verified 06/25/18 16:41) - Review of Systems ROS: No change since H&P - Vital Signs and I&O's Vital Signs: Temperature 98.1 F Pulse Rate [Right Brachial] 74 Respiratory Rate 18 Blood Pressure [Right Arm] 176/76 Blood Pressure 113/56 O2 Sat by Pulse Oximetry 94 Intake and Output: Intake & Output 06/27/18 06/28/18 06/29/18 06/30/18 11:59 11:59 11:59 11:59 Intake Total 2380 / 2380 3481 / 3481 2440 / 2440 1260 / 1260 Balance 2380 / 2380 3481 / 3481 2440 / 2440 1260 / 1260 - Physical Exam Oriented: Normal Eyes: Normal Ear: Normal Nose: Normal Throat: Normal Respiratory: Normal Cardiovascular: Normal : Normal Auscultation: Bowel Sounds: Normal Tenderness: Suprapubic, Mild Skin: Red, Tender (RIGHT KNEE ), Bruising Musculoskeletal: Right, Knee, Swelling, Tender (stable, rom not tested due to pain. distal nv intact. ) Psychiatric: Normal Mood Description: Calm Affect: Normal Speech Pattern: Clear, Appropriate - Laboratory and Diagnostics Result Diagrams: 06/29/18 05:10 06/29/18 05:10 Labs: 06/26/18 00:07 Urine,Clean Catch Urine Culture - Final Escherichia Coli Laboratory WBC 7.2 X10^3/uL (3.6-10.0) 06/29/18 05:10 RBC 3.77 X10^6/uL (3.5-5.4) 06/29/18 05:10 Hgb 12.1 g/dL (12.0-16.0) 06/29/18 05:10 Hct 36.2 % (36.0-47.0) 06/29/18 05:10 MCV 95.9 fL (80.0-100.0) 06/29/18 05:10 MCH 31.9 pg (27.0-34.0) 06/29/18 05:10 MCHC 33.3 g/dL (33.0-35.0) 06/29/18 05:10 RDW 14.0 % (11.6-16.5) 06/29/18 05:10 Plt Count 204 X10^3/uL (150.0-450.0) 06/29/18 05:10 MPV 10.3 fL (7.4-11.0) 06/29/18 05:10 Neut % (Auto) 69.6 % (42.0-75.0) 06/29/18 05:10 Lymph % (Auto) 18.6 % (21.0-51.0) L 06/29/18 05:10 [place] % (Auto) 6.0 % (0.0-13.0) 06/29/18 05:10 Eos % (Auto) 5.0 % (0.9-2.9) H 06/29/18 05:10 Baso % (Auto) 0.8 % (0.2-1.0) 06/29/18 05:10 Neut # (Auto) 5.0 x10^3/uL (2.2-4.8) H 06/29/18 05:10 Lymph # (Auto) 1.3 X10^3/uL (1.3-2.9) 06/29/18 05:10 [place] # (Auto) 0.4 x10^3/uL (0.3-0.8) 06/29/18 05:10 Eos # (Auto) 0.4 x10^3/uL (0.0-0.2) H 06/29/18 05:10 Baso # (Auto) 0.1 X10^3/uL (0.0-0.1) 06/29/18 05:10 Absolute Nucleated RBC 0.0 /100WBC 06/29/18 05:10 Sodium 141 mmol/L (136-145) 06/29/18 05:10 Corrected Sodium 141 mmol/L (136-145) 06/29/18 05:10 Potassium 3.9 mmol/L (3.5-5.1) 06/29/18 05:10 Chloride 110 mmol/L (98-107) H 06/29/18 05:10 Carbon Dioxide 22.5 mmol/L (21-32) 06/29/18 05:10 BUN 21 mg/dL (7-18) H 06/29/18 05:10 Creatinine 1.42 mg/dL (0.55-1.02) H 06/29/18 05:10 Est GFR (MDRD) Af Amer 46 (>60) L 06/29/18 05:10 Est GFR (MDRD) Non-Af 38 (>60) L 06/29/18 05:10 Glucose 114 mg/dL (65-99) H 06/29/18 05:10 Calcium 8.4 mg/dL (8.5-10.1) L 06/29/18 05:10 Corrected Calcium 9.4 mg/dL (8.5-10.1) 06/29/18 05:10 Magnesium 1.9 mg/dL (1.7-2.9) 06/28/18 04:47 Total Bilirubin 0.60 mg/dL (0.2-1.0) 06/29/18 05:10 AST 34 Units/L (15-37) 06/29/18 05:10 ALT 35 Units/L (12-78) 06/29/18 05:10 Alkaline Phosphatase 39 Units/L (46-116) L 06/29/18 05:10 Total Protein 6.4 g/dL (6.4-8.2) 06/29/18 05:10 Albumin 2.8 g/dL (3.4-5.0) L 06/29/18 05:10 Globulin 3.6 g/dL (2.5-4.5) 06/29/18 05:10 Albumin/Globulin Ratio 0.8 Ratio (1.1-2.1) L 06/29/18 05:10 Specimen Type Clean catch urine 06/26/18 00:07 Urine Color Yellow (YELLOW) 06/26/18 00:07 Urine Appearance Cloudy (CLEAR) 06/26/18 00:07 Urine pH 6.0 (5.0 - 8.0) 06/26/18 00:07 Ur Specific [place] 1.020 (1.000-1.030) 06/26/18 00:07 Urine Protein 1+ (NEGATIVE) 06/26/18 00:07 Urine Glucose (UA) Negative (NEGATIVE) 06/26/18 00:07 Urine Ketones Negative (NEGATIVE) 06/26/18 00:07 Urine Occult Blood 1+ (NEGATIVE) 06/26/18 00:07 Urine Nitrite Positive (NEGATIVE) 06/26/18 00:07 Urine Bilirubin Negative (NEGATIVE) 06/26/18 00:07 Urine Urobilinogen 1+ (NORMAL) 06/26/18 00:07 Ur Leukocyte Esterase 2+ (NEGATIVE) 06/26/18 00:07 Urine RBC 5-10 /HPF (NONE SEEN) 06/26/18 00:07 Urine WBC 20-30 /HPF (NONE SEEN) 06/26/18 00:07 Ur Squamous Epith Cells Few /HPF (NEGATIVE) 06/26/18 00:07 Amorphous Sediment 1+ /HPF (NEGATIVE) 06/26/18 00:07 Urine Bacteria 2+ /HPF (NEGATIVE) 06/26/18 00:07 Urine Mucus Few /HPF (NEGATIVE) 06/26/18 00:07 Ur Culture Indicated? Yes/culture set up 06/26/18 00:07 - Plan (1) Knee fracture, right Status: Acute Plan: KNEE SPLINT, NON-WEIGHT BEARING, PHYSICAL THERAPY, PAIN CONTROL, CONTINUE TO MONITOR (2) ACL tear Status: Acute Qualifiers: Encounter type: initial encounter Laterality: right Qualified Code(s): S83.511A - Sprain of anterior cruciate ligament of right knee, initial encounter Plan: KNEE SPLINT, NON-WEIGHT BEARING, PHYSICAL THERAPY, PAIN CONTROL, CONTINUE TO MONITOR (3) Chronic meniscal tear of knee Status: Acute Qualifiers: Meniscus of knee: unspecified Meniscus tear of knee type: unspecified type Laterality: right Qualified Code(s): M23.206 - Derangement of unspecified meniscus due to old tear or injury, right knee Plan: KNEE SPLINT, NON-WEIGHT BEARING, PHYSICAL THERAPY, PAIN CONTROL, CONTINUE TO MONITOR (4) Right knee pain Status: Acute Qualifiers: Chronicity: acute Qualified Code(s): M25.561 - Pain in right knee Plan: IV PAIN CONTROL, CONTINUE TO MONITOR (5) Dehydration Status: Acute Plan: NORMAL SALINE AT 100ML/HR, CONTINUE TO MONITOR (6) Urinary tract infection Status: Acute Qualifiers: Urinary tract infection type: acute cystitis Hematuria presence: without hematuria Qualified Code(s): N30.00 - Acute cystitis without hematuria Plan: ROCEPHIN 1GM IV DAILY, NS AT 100ML/HR, CONTINUE TO MONITOR
[2018-06-29] MEDS: CALAN SR 240 MG PO SCH ×2 (19:18→21:49)
[2018-06-30] MEDS: TYLENOL 325 MG TAB PO PRN ×2 (00:15→00:17)
[2018-06-30] MEDS: ZANAFLEX PO PRN (00:17)
[2018-06-30] MEDS: MORPHINE SULFATE INJ 2 MG INJ IVP PRN (03:45)
[2018-06-30 05:13] LABS: BASOPHILS # (AUTO) 0.1 X10^3/uL (0.0-0.1); EOSINOPHILS # (AUTO) 0.3 x10^3/uL (0.0-0.2); EOSINOPHILS % (AUTO) 5.8 % (0.9-2.9); HEMATOCRIT 30.5 % (36.0-47.0); HEMOGLOBIN 10.3 g/dL (12.0-16.0); LYMPHOCYTES # (AUTO) 1.1 X10^3/uL (1.3-2.9); LYMPHOCYTES % (AUTO) 18.6 % (21.0-51.0); MEAN CORPUSCULAR HEMOGLOBIN 31.9 pg (27.0-34.0); MEAN CORPUSCULAR HGB CONC 33.6 g/dL (33.0-35.0); MEAN CORPUSCULAR VOLUME 94.8 fL (80.0-100.0); MEAN PLATELET VOLUME 9.7 fL (7.4-11.0); MONOCYTES # (AUTO) 0.4 x10^3/uL (0.3-0.8); MONOCYTES % (AUTO) 7.3 % (0.0-13.0); NEUTROPHILS # (AUTO) 3.9 x10^3/uL (2.2-4.8); NEUTROPHILS % (AUTO) 67.3 % (42.0-75.0); PLATELET COUNT 174 X10^3/uL (150.0-450.0); RED BLOOD COUNT 3.22 X10^6/uL (3.5-5.4); RED CELL DISTRIBUTION WIDTH 13.8 % (11.6-16.5); WHITE BLOOD COUNT 5.8 X10^3/uL (3.6-10.0)
[2018-06-30 05:25] LABS: ALANINE AMINOTRANSFERASE 30 Units/L (12-78); ALBUMIN 2.4 g/dL (3.4-5.0); ALKALINE PHOSPHATASE 34 Units/L (46-116); ASPARTATE AMINO TRANSFERASE 26 Units/L (15-37); BLOOD UREA NITROGEN 19 mg/dL (7-18); CALCIUM 8.2 mg/dL (8.5-10.1); CARBON DIOXIDE 27.7 mmol/L (21-32); CHLORIDE 110 mmol/L (98-107); COR CA(FOR HYPOALB) 9.5 mg/dL (8.5-10.1); CREATININE 1.43 mg/dL (0.55-1.02); SODIUM 143 mmol/L (136-145); TOTAL PROTEIN 5.4 g/dL (6.4-8.2); eGFR NON BLACK RACES 37 (>60)
[2018-06-30] MEDS ORDERED: ZESTRIL TAB 20 MG ONE (07:52)
[2018-06-30] MEDS: ROCEPHIN VIAL 1 GRAM 1 G in NS 100 ML IV + SPIKE MINIBAG* 100 ML IV SCH (08:28)
[2018-06-30] MEDS: ZESTRIL TAB 20 MG PO SCH (08:28)
[2018-06-30] MEDS: PROTONIX TAB 40 MG PO SCH (08:28)
[2018-06-30] MEDS: TRICOR TAB 48 MG PO SCH (08:29)
[2018-06-30] MEDS: LOPRESSOR TAB 50 MG PO SCH (08:29)
[2018-06-30] MEDS: EVISTA PO SCH (08:29)
[2018-06-30] MEDS ORDERED: HYDROCHLOROTHIAZIDE 25 MG TAB PO SCH (09:00)
[2018-06-30 09:54] VITALS: BP 158/67
--- NOTE | 2018-08-23 22:49 | DR.CARTERD ---
- Discharge Summary for: Discharge Summary for Date of:: 06/30/18 - Admission Date Date of Admission: 06/25/18 - Admission Diagnoses Admission Diagnosis: (1) Fall (2) Right knee pain (3) Dehydration (4) Urinary tract infection - Discharge Date Discharge Date: 06/30/18 - Discharge Diagnoses Discharge Diagnosis: (1) Knee fracture, right (2) ACL tear (3) Chronic meniscal tear of knee (4) Right knee pain (5) Dehydration (6) Urinary tract infection - Hospital Course Hospital Course: DAY ONE, WAS ADMITTED FOLLOWING A FALL AT HOME. SHE COMPLAINED OF SEVERE PAIN TO THE RIGHT KNEE. SHE ALSO REPORTED AN ACHING PAIN TO THE LOWER BACK AND RIGHT HIP. ON EXAMINATION, HEART WAS REGULAR IN RATE AND RHYTHM. BILATERAL LUNGS WERE NOTED TO BE CLEAR TO AUSCULTATION. ABDOMEN WAS ROUND, SOFT, AND NOTED WITH MILD SUPRAPUBIC TENDERNESS TO PALPATION. SHE WAS NOTED WITH LUMBAR TENDERNESS. RIGHT KNEE WAS NOTED TO BE SWOLLEN AND TENDER TO TOUCH WITH DECREASED RANGE OF MOTION. SHE REPORTED BEING UNSTEADY ON AMBULATION DUE TO PAIN. WE ADMITTED PATIENT FOR FURTHER TREATMENT AND EVALUATION. DAY TWO, SHE CONTINUED WITH BACK AND RIGHT KNEE AND RIGHT HIP PAIN. HER VITALS WERE 98.2-68-20-97%-119/56. LABS WERE OBTAINED. ABNORMAL LAB VALUES INCLUDED THE FOLLOWING: RBC 3.23, HGB 10.6, HCT 30.9, BUN 27, CREATININE 1.72, GLUCOSE 114, CALCIUM 7.9, ALK PHOS 28, TOTAL PROTEIN 5.3, ALBUMIN 2.5. URINALYSIS OBTAINED ON ADMISSION REVEALED WBC 20-30, RBC 5-10, LEUKOCYTES 2+, BACTERIA 2+. RIGHT KNEE XRAY OBTAINED ON ADMISSION REVEALED: There is moderate to advanced lateral femorotibial degenerative changes. There is mild medial femorotibial and patellofemoral degenerative changes. Small joint effusion is seen. Osteochondral body likely lies within a popliteal cyst. No fracture or malalignment noted. WE STARTED NORMAL SALINE AT 100ML/HR, AND ROCEPHIN 1GM IV DAILY. WE CONTINUED TO MONITOR PATIENT. DAY THREE, WAS ADMITTED FOLLOWING A FALL AT HOME. SHE CONTINUED WITH COMPLAINTS OF SEVERE PAIN TO THE RIGHT KNEE. SHE REPORTED THAT BACK PAIN AND RIGHT HIP PAIN HAD SLIGHTLY IMPROVED. ON EXAMINATION, HEART WAS REGULAR IN RATE AND RHYTHM. BILATERAL LUNGS WERE NOTED TO BE CLEAR TO AUSCULTATION. ABDOMEN WAS ROUND, SOFT, AND NOTED WITH MILD SUPRAPUBIC TENDERNESS TO PALPATION. SHE WAS NOTED WITH MILD LUMBAR TENDERNESS. RIGHT KNEE CONTINUED TO BE SWOLLEN AND TENDER TO TOUCH WITH DECREASED RANGE OF MOTION. SHE REPORTED SEVERE PAIN AND UNSTEADY GAIT ON AMBULATION. HER VITALS WERE 97.9-73-18-99%-148/66. LABS WERE OBTAINED. ABNORMAL LAB VALUES INCLUDED THE FOLLOWING: HGB 11.7, HCT 34.7, CHLORIDE 108, BUN 21, CREATININE 1.44, CALCIUM 8.0, ALK PHOS 33, TOTAL PROTEIN 6.0, ALBUMIN 2.7. 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 There is no displaced fracture fragment or depression of the lateral tibial plateau articular surface. Severely macerated and displaced tear of the lateral meniscal anterior horn and body with residual body and anterior horn displaced posteriorly adjacent to the posterior horn. The intact posterior horn is macerated with degenerative signal consistent with chronic tear. Moderate patellofemoral and medial femorotibial compartment osteoarthrosis. Chronic full- thickness tear of the ACL with scarring and fibrosis. Scarring/fibrosis within the PCL and superficial MCL however given the edema both deep and superficial to the superficial MCL this likely represents an acute on chronic MCL sprain. Moderate sized popliteal fossa cyst with large osteochondral body within the popliteal fossa. Degenerative signal and central free edge truncation of the medial meniscus without acute or displaced meniscal tear. enlarged and thickened medial patellar plica extending across the entire superior suprapatellar pouch. WE CONSULTED . HE RECOMMENDED A KNEE IMMOBILIZER AND NON-WEIGHT BEARING UNTIL FURTHER NOTICE. WE CONTINUED WITH PAIN CONTROL, PHYSICAL THERAPY. DAY FOUR AND FIVE, MRI REVEALED A FRACTURE OF THE RIGHT KNEE, A MACERATED MENISCUS, AN ACL TEAR, AND A MCL SPRAIN. SHE CONTINUED WITH COMPLAINTS OF SEVERE PAIN TO THE RIGHT KNEE. SHE REPORTED THAT BACK PAIN AND RIGHT HIP PAIN HAD SLIGHTLY IMPROVED. ON EXAMINATION, HEART WAS REGULAR IN RATE AND RHYTHM. BILATERAL LUNGS WERE NOTED TO BE CLEAR TO AUSCULTATION. ABDOMEN WAS ROUND, SOFT, AND NOTED WITH MILD SUPRAPUBIC TENDERNESS TO PALPATION. SHE WAS NOTED WITH MILD LUMBAR TENDERNESS. RIGHT KNEE CONTINUED TO BE SWOLLEN AND TENDER TO TOUCH WITH DECREASED RANGE OF MOTION. SHE REPORTED SEVERE PAIN AND UNSTEADY GAIT ON AMBULATION. HER VITALS WERE 97.8-70-20-97%-145/67. LABS WERE OBTAINED. ABNORMAL LAB VALUES INCLUDED THE FOLLOWING: HGB 11.2, HCT 33.5, CHLORIDE 111, BUN 21, CREATININE 1.42, CALCIUM 8.0, ALK PHOS 36, TOTAL PROTEIN 5.8, ALBUMIN 2.5. SHE CONTINUED WITH PHYSICAL THERAPY. PATIENT HAD DIFFICULTY AMBULATING FOR LONG DISTANCES WITHOUT SEVERE PAIN. SHE REQUIRED A BEDSIDE COMMODE AND WALKER AT HOME. WE STARTED TORADOL 15MG IV Q6H BRI. WE CONTINUED WITH PAIN CONTROL, PHYSICAL THERAPY, AND CONTINUED TO MONITOR PATIENT. DAY SIX, PATIENT WAS DOING BETTER. SHE REPORTED DECREASED PAIN TO RIGHT KNEE WITH BRACE IN PLACE. SHE REPORTED BACK PAIN HAD IMPROVED. VITAL SIGNS STABLE. LABS WNL. WE PLANNED FOR DISCHARGE WITH HOME HEALTH. INSTRUCTIONS FOR MEDICATIONS AND FOLLOW UP WERE DISCUSSED WITH PATIENT AND FAMILY, BOTH VOICED UNDERSTANDING. PATIENT DISCHARGED HOME IN STABLE CONDITION WITH FAMILY. - Discharge Medications Discharge Medications: Home Medication List fenofibrate 1 tab PO DAILY 06/25/18 [History] lisinopril 20 mg PO DAILY 06/25/18 [History] metoprolol tartrate 50 mg PO BID 06/25/18 [History] pantoprazole 40 mg PO DAILY 06/25/18 [History] raloxifene 60 mg PO DAILY 06/25/18 [History] verapamil 240 mg PO HS 06/25/18 [History] hydrocodone-acetaminophen [[place]] 1 tab PO Q6H PRN #30 tab 06/30/18 [Rx] tizanidine 4 mg PO Q8H PRN #30 tab 06/30/18 [Rx] Prescriptions: hydrocodone-acetaminophen [[place]] Alex Rahman tizanidine Alex Rahman - Discharge Disposition Discharge Disposition: PATIENT IS TO FOLLOW UP IN OUR OFFICE IN ONE WEEK AND WITH DR. COOPER IN ONE WEEK.
== END 2018-06-30 09:55 | disposition home health service (06) | DRG 556 ==
LOC: MED/SURG
PROVIDERS: ADMIT Internal Medicine; ATTEND Internal Medicine
DX: R06.02 Shortness of breath; B96.29 Other Escherichia coli [E. coli] as the cause of diseases classified elsewhere; K21.9 Gastro-esophageal reflux disease without esophagitis; E86.0 Dehydration; W18.39XA Other fall on same level, initial encounter; S82.124A Nondisplaced fracture of lateral condyle of right tibia, initial encounter for closed fracture; R94.4 Abnormal results of kidney function studies; N30.00 Acute cystitis without hematuria; I10 Essential (primary) hypertension; M25.561 Pain in right knee; S83.511A Sprain of anterior cruciate ligament of right knee, initial encounter; R26.89 Other abnormalities of gait and mobility; M25.551 Pain in right hip; M53.3 Sacrococcygeal disorders, not elsewhere classified
CPT/HCPCS: 36415; 71010; 71045; 72110; 72220; 73501; 73564; 73721; 80053; 81001; 83735; 85025; 87086; 87088; 87186; 97110; 97116; 97162; 97167; 97530; 97535; A4222; G0378; J0696; J1885; J2270; J3490; J7030; J7050

== ENCOUNTER 2018-07-04 15:05 | Observation (INO) ==
--- NOTE | 2018-07-04 15:59 | DR.H&P ---
H&P - History & Physical for Day of: H&P Date: 07/03/18 - Chief Complaint Chief Complaint: infected decubitus ulcers - History of Present Illness History of Present Illness: is a 59 year old patient of ours who presented to the hospital as a direct admission. Home health nurses report that patient has non-healing, infected decubitus ulcers to the buttocks. They report treating with two different antibiotics creams as well as oral and IV antibiotics with no improvement in wounds. Four total wounds noted to sacral area, first wound to the gluteal crease is a pressure ulcer that measures 4.5cm in length. Unable to accurately measure width. It is unstageable. Wound bed is bright pink in color with moderate amount of serosanguinous drainage noted. Wound culture collected. Second wound to right gluteal fold is a stage 3 pressure ulcer noted to the right gluteal fold that measures 4cm x 4cm. The wound bed is bright red in color and moist in appearance. Serous drainage noted. Surrounding tissue is pink in color. Third wound to left buttock is a pressure ulcer that measures 4cm x 1.5cm. Wound bed is bright red in color. Minimal amount of serous drainage noted. On auscultation of lung contreras patient noted with diminished breath sounds throughout and placed on supplemental oxygen at 2L/min via nasal cannula. Medical History includes: Cataracts, CAD, CHF, Hyperlipidemia, Hypertension, Bronchitis, Pneumonia, COPD, Sleep Apnea, Gerd, Kidney Stones, DM type II, Skin CA. On admission, vitals were 98, 98, 22, 100% 2L NC, 151/92. Labs were obtained. Abnormal Labs include the following: RBC 4.60, Hgb 12.8, Hct 39.9, MCHC 32.1, MPV 6.3, Neut% 81.4, Lymph% 7.8, Eos% 5.5, Neut# 6.6, Lymph# 0.6, Eos# 0.4, Carbon Dioxide 35.0, BUN 21, Creatinine 1.72, GFR af 53, GFR non 43, Glucose 109, Albumin 3.1, Globulin 5.1, A/G Ratio 0.6. Blood Cultures x2 Pending. Wound cultures collected from all wounds and sent to lab. Dr. Meehan (general surgeon) consulted for possible surgical debridement of wounds. Patient evaluated by physical and occupational therapy on admission who noted patient to require assistance with all ADLs. He was started on IV zosyn and Vancomycin. We plan to follow up with AM labs and continue to monitor patient. - Past Medical History Past Medical History: GERD, Hypertension - Past Surgical History Surgical History: Hysterectomy - Family History Family Medical History: Hypertension - Social History Does patient currently use any type of tobacco product: No Have you used tobacco products in the last 12 months: No Type of Tobacco Use: None Does any household member use tobacco: No Alcohol Use: None - Medications Home Medications: No Known Drug Allergies Allergy (Verified 06/25/18 16:41) - Physical Exam Vital Signs: Temperature 98.7 F Pulse Rate 91 Respiratory Rate 20 Blood Pressure [Right Arm] 158/67 Blood Pressure 141/59 O2 Sat by Pulse Oximetry 96 - Allergies Allergies/Adverse Reactions: Allergies Allergy/AdvReac Type Severity Reaction Status Date / Time No Known Drug Allergies Allergy Verified 06/25/18 16:41
[2018-07-04] MEDS ORDERED: ZOFRAN INJ 4 MG VIAL IM ONE (16:23)
[2018-07-04] MEDS ORDERED: MORPHINE SULFATE INJ 4 MG IM ONE (16:23)
--- NOTE | 2018-07-04 16:25 | DR.TRAUMA ---
HPI Time Seen Time Seen by Provider: 07/04/18 15:49 PCP Primary Care Physician: kady HPI Comment HPI Comment: PATIENT CHANGE HER ENVEROMENT DUE TO HER FRACTURE. LIVING WITH HER CHILDREN. NO FEVER OR DYSURIA. Complaint/Symptom Chief Complaint Doctors Comments: INCREASING LOWER BACK, RLQ ABDOMEN, RT HIP AND RT FOOT/ANKLE PAIN SINCE LAST NIGHT. SHE IS SLIGHTLY CONFUSE WITH SOME INCORDINATION. NO N/V/D. HAVE PATELLA FRACTURE FROM A RECENT FALL . Chief Complaint:: pt has been in our hospital over the weekend, since her release she has been hurting in her lower back, pain in her right hip area and her right knee. pt fell last week and has a fx right knee cap Source History Provided: Patient Mode of Arrival Mode of Arrival: Wheelchair Timing Onset of Chief Complaint: 06/25/18 PMH PMH Past Medical History: Yes Past Medical History: GERD and Hypertension Past Surgical History: Yes Surgical History: Hysterectomy Family History History of Family Medical Conditions: Yes Family Medical History: Hypertension Social History Does patient currently use any type of tobacco product: No Have you used tobacco products in the last 12 months: No Type of Tobacco Use: None Does any household member use tobacco: No Alcohol Use: None Do you use any recreational Drugs:: No Lives With: Alone Lives Where: Home infectious screening In the last 2 months have you had wt loss of >10#?: NO Have you had fever, night sweats or hemotysis?: No Have you traveled outside the country in the last 6 months?: No Isolation: Standard ROS Review of Systems Constitutional: Weakness and Fatigue Eyes: No Symptoms Reported ENTM: No Symptoms Reported Respiratoy: No Symptoms Reported Cardiovascular: No Symptoms Reported Gastrointestinal/Abdominal: Abdominal Pain Genitourinary: No Symptoms Reported Neurological: Headache and Weakness Musculoskeletal: Hip, Knee, Ankle and Foot Integumentary: Change in Color Hematologic/Lymphatic: Easy Bleeding and Easy Bruising Endocrine: No Symptoms Reported Psychiatric: No Symptoms Reported All Other Systems: Reviewed and Negative PE Vitals Vitals: Temperature 98.7 F Pulse Rate [Right Brachial] 76 Pulse Rate 91 Respiratory Rate 17 Blood Pressure [Right Arm] 152/64 Blood Pressure 141/59 O2 Sat by Pulse Oximetry 94 General Limitations: No Limitations General Appearance: Alert and In No Apparent Distress (PATIENT IN PAIN.) Head Head Exam: Normal Inspection, Atraumatic and Normocephalic Head Exam Physical: Other (NONE REPORTED.) Eyes Eye exam: PERRL and EOMI; negative Scleral Icterus and Conjunctival Injection Eyelids: Normal Inspection: Bilateral Pupils: Regular, Round: Bilateral and Reactive: Bilateral ENT ENT Exam: Normal Oropharynx, Normal External Ear Exam, Mucous Membranes Dry and TM's Normal Bilaterally External Ear Exam: Normal External Inspection TM/Canal Exam: Bilateral: Normal Nose Exam: Normal Nose Exam Mouth Exam: Normal Inspection Teeth Exam: Normal Inspection Throat Exam: Normal Inspection Neck Neck Exam: Normal Inspection and Trachea Midline Neck Exam Focused: Normal Inspection Chest Chest Inspection: Normal Inspection and Symmetric Chest Wall Rise Expanded Chest Exam: Other (NONE REPORTED.) Respiratory Respiratory Exam: Normal Lung Sounds Bilat Respiratory Exam: Bilateral: Rhonchi and Lower: Rhonchi Cardiovascular Cardiovascular Exam: Regular Rate, Normal Rhythm and Normal Heart Sounds Abdominal Exam Abdominal Exam: Normal Bowel Sounds, Soft and Tenderness Abdominal Tenderness: RLQ and Moderate Extremities Extremities Exam: Tenderness (RT HIP, KNEE, ANKLE TENDER WITH DECREASE ROM.) and Normal Capillary Refill; negative Edema Lower Extremities Hip/Pelvis Exam: Tenderness (RT HIP TENDER.) and Pelvis Stable Foot/Toe Exam: Tenderness (RT ANKLE AND FISH LIVER SORTER.) Neurovascular/Tendon Exam: negative Pulse Deficit, Motor Deficit and Sensory Deficit Gait Exam: Not Tested/Not Observed Back Back Exam: Tenderness (LOWER LUMBAR SPINE TENDERNESS.) Neurologic Neurological Exam: Alert and Oriented X3; negative Motor Sensory Deficit Patient Oriented To: Person and Place Cranial Nerve Exam: Gag reflex (XI): Normal and Tongue Deviation: Normal Upper Motor Neuron Exam: Babinski Sign: Normal Psychiatric Psychiatric Exam: Anxious Skin Skin Exam: Erythema MDM Additional Information Additional Information Obtained From: Old Records and Family Differential Diagnosis Differential Diagnosis (Trauma): Fracture (s) and Spine injury Differential Diagnosis (Skin): Contusion (s) and OTHER (SPRAIN) COURSE Treatment Treatment: SEE ORDERS. IM MORPHINE IN ED. Reevaluation 1st: Improved (PAIN IMPROVING.) Consultation Consultation Comments: DR. GANDHI WILL ADMIT PATIENT. Education/Counseling Education/Counseling: Patient and Family Educated On: Diagnosis ROR Labs Reviewed Laboratory Results Reviewed?: Yes Result Diagrams: 07/04/18 17:45 07/04/18 17:45 Laboratory: WBC 9.7 X10^3/uL (3.6-10.0) 08/22/18 17:45 RBC 4.00 X10^6/uL (3.5-5.4) 07/04/18 17:45 Hgb 12.7 g/dL (12.0-16.0) 07/04/18 17:45 Hct 38.3 % (36.0-47.0) 07/04/18 17:45 MCV 95.6 fL (80.0-100.0) 07/04/18 17:45 MCH 31.8 pg (27.0-34.0) 07/04/18 17:45 MCHC 33.3 g/dL (33.0-35.0) 07/04/18 17:45 RDW 14.0 % (11.6-16.5) 07/04/18 17:45 Plt Count 265 X10^3/uL (150.0-450.0) 07/04/18 17:45 MPV 9.5 fL (7.4-11.0) 07/04/18 17:45 Neut % (Auto) 81.8 % (42.0-75.0) H 07/04/18 17:45 Lymph % (Auto) 8.0 % (21.0-51.0) L 07/04/18 17:45 [place] % (Auto) 7.3 % (0.0-13.0) 07/04/18 17:45 Eos % (Auto) 0.8 % (0.9-2.9) L 07/04/18 17:45 Baso % (Auto) 2.1 % (0.2-1.0) H 07/04/18 17:45 Neut # (Auto) 7.9 x10^3/uL (2.2-4.8) H 07/04/18 17:45 Lymph # (Auto) 0.8 X10^3/uL (1.3-2.9) L 07/04/18 17:45 [place] # (Auto) 0.7 x10^3/uL (0.3-0.8) 07/04/18 17:45 Eos # (Auto) 0.1 x10^3/uL (0.0-0.2) 07/04/18 17:45 Baso # (Auto) 0.2 X10^3/uL (0.0-0.1) H 07/04/18 17:45 Absolute Nucleated RBC 0.0 /100WBC 07/04/18 17:45 Sodium 137 mmol/L (136-145) 07/04/18 17:45 Corrected Sodium 137 mmol/L (136-145) 07/04/18 17:45 Potassium 4.1 mmol/L (3.5-5.1) 07/04/18 17:45 Chloride 99 mmol/L (98-107) 07/04/18 17:45 Carbon Dioxide 33.8 mmol/L (21-32) H 07/04/18 17:45 BUN 24 mg/dL (7-18) H 07/04/18 17:45 Creatinine 1.69 mg/dL (0.55-1.02) H 07/04/18 17:45 Est GFR (MDRD) Af Amer 37 (>60) L 07/04/18 17:45 Est GFR (MDRD) Non-Af 31 (>60) L 07/04/18 17:45 Glucose 113 mg/dL (65-99) H 07/04/18 17:45 Calcium 9.3 mg/dL (8.5-10.1) 07/04/18 17:45 Corrected Calcium TNP 07/04/18 17:45 Total Bilirubin 0.80 mg/dL (0.2-1.0) 07/04/18 17:45 AST 23 Units/L (15-37) 07/04/18 17:45 ALT 28 Units/L (12-78) 07/04/18 17:45 Alkaline Phosphatase 51 Units/L (46-116) 07/04/18 17:45 Total Protein 7.3 g/dL (6.4-8.2) 07/04/18 17:45 Albumin 3.4 g/dL (3.4-5.0) 07/04/18 17:45 Globulin 3.9 g/dL (2.5-4.5) 07/04/18 17:45 Albumin/Globulin Ratio 0.9 Ratio (1.1-2.1) L 07/04/18 17:45 Specimen Type Catherized urine 07/04/18 16:20 Urine Color Yellow (YELLOW) 07/04/18 16:20 Urine Appearance Hazy (CLEAR) 07/04/18 16:20 Urine pH 6.0 (5.0 - 8.0) 07/04/18 16:20 Ur Specific [place] 1.020 (1.000-1.030) 07/04/18 16:20 Urine Protein 1+ (NEGATIVE) 07/04/18 16:20 Urine Glucose (UA) Negative (NEGATIVE) 07/04/18 16:20 Urine Ketones 1+ (NEGATIVE) 07/04/18 16:20 Urine Occult Blood 2+ (NEGATIVE) 07/04/18 16:20 Urine Nitrite Negative (NEGATIVE) 07/04/18 16:20 Urine Bilirubin Negative (NEGATIVE) 07/04/18 16:20 Urine Urobilinogen 1+ (NORMAL) 07/04/18 16:20 Ur Leukocyte Esterase 1+ (NEGATIVE) 07/04/18 16:20 Urine RBC 0-2 /HPF (NONE SEEN) 07/04/18 16:20 Urine WBC 0-2 /HPF (NONE SEEN) 07/04/18 16:20 Ur Squamous Epith Cells Rare /HPF (NEGATIVE) 07/04/18 16:20 Urine Bacteria Trace /HPF (NEGATIVE) 07/04/18 16:20 Hyaline Casts Rare /LPF (NEGATIVE) 07/04/18 16:20 Urine Mucus Rare /HPF (NEGATIVE) 07/04/18 16:20 Ur Culture Indicated? No/not indicated 07/04/18 16:20 XRAY XRAY Findings: REPORT DISCUSS WITH PATIENT AND FAMILY. Diagnosis Discharge Problem: Intractable back pain, Fracture of coccyx, Dehydration
[2018-07-04] MEDS ORDERED: ZOFRAN INJ 4 MG VIAL ONE (16:31)
[2018-07-04] MEDS ORDERED: MORPHINE SULFATE INJ 4 MG ONE (16:31)
[2018-07-04 16:43] LABS: BILIRUBIN,URINE NEGATIVE (NEGATIVE); BLOOD/HEMOGLOBIN,URINE 2+ (NEGATIVE); GLUCOSE, URINE NEGATIVE (NEGATIVE); KETONES,URINE 1+ (NEGATIVE); LEUKOCYTE ESTERASE ,URINE 1+ (NEGATIVE); NITRITES,URINE NEGATIVE (NEGATIVE); PROTEIN,URINE 1+ (NEGATIVE); UROBILINOGEN,URINE 1+ (NORMAL)
[2018-07-04 16:44] LABS: APPEARANCE,URINE HAZY (CLEAR); COLOR,URINE YELLOW (YELLOW)
[2018-07-04 16:49] LABS: BACTERIA,URINE TRACE /HPF (NEGATIVE); HYALINE CASTS, URINE RARE /LPF (NEGATIVE); MUCUS,URINE RARE /HPF (NEGATIVE); RBC,URINE 0-2 /HPF (NONE SEEN); SQUAMOUS EPITHELIAL CELL,UR RARE /HPF (NEGATIVE)
--- NOTE | 2018-07-04 17:33 | RAD ---
HISTORY: Pain. Study: Three views of the right foot. Comparison: None. Findings: No acute cortical disruption or dislocation can be identified. No significant soft tissue swelling o r injury can be seen. 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 Marvin caneal enthesophytes. IMPRESSION: No acute osseous abnormality. Reported By:
--- NOTE | 2018-07-04 17:35 | CT ---
CT pelvis without contrast Indication: Back pain with subacute fall Comparison: None available Technique: Multiple axial images of the pelvis were obtained from the iliac crest to the proximal thi gh without administration of IV contrast. Sagittal and coronal reformats were performed and reviewed . Findings: There is a nondisplaced fracture of the superior coccyx seen on sagittal image 64 and axial image 51. Presacral soft tissue swelling is noted. There is no malalignment of the sacrum or coccyx. Moderate degenerative change of pubic symphysis. There is no fracture of the obturator rings or diastases of t he pubic symphysis or SI joints. No fracture malalignment of the right or left femoroacetabular joint . Moderate spondylolysis and facet arthropathy at L4-5 and L5-S1 with a grade 1 spondylolisthesis at L4 There is moderate enthesopathic change of the left greater than right hamstring origin. Imaging of the deep pelvis demonstrates a Stevens catheter collapsing the urinary bladder. IMPRESSION: 1. Nondisplaced fracture of the superior coccyx. 2. Chronic, degenerative findings as described above Reported By:
--- NOTE | 2018-07-04 17:37 | CT ---
CT abdomen and pelvis without Indication: 'Patient has been in our hospital over the weekend, since her release she has been hurtin g in her lower back, pain in her right hip area and her right knee. Patient fell last week and has a fractured right kneecap.' Technique: Helical CT images of the abdomen and pelvis were obtained without IV contrast. Reformatted images in the coronal and sagittal planes were also generated for review. Comparison: None Findings: Moderate degenerative changes of the lumbosacral spine noted. No acute fracture or malalign ment is identified. No aggressive osseous lesions are seen. The visualized lung bases are clear. The unenhanced superficial soft tissues are grossly unremarkable. Within the limits of a noncontrast exam, the unenhanced liver is diffusely steatotic but normal in si ze and configuration without gross focal lesion. The gallbladder, spleen, pancreas, adrenals and kidn ey are unremarkable. There is no urolithiasis or obstructive uropathy. The distal rectum is excluded from the [id number]. The visualized unenhanced GI tract is without obstruction or gross inflammati on. The appendix is normal. The abdominal aorta is mildly calcified without aneurysm. The urinary price dder is collapsed around a Stevens catheter, limiting evaluation. The uterus is surgically absent. No f ree air, significant free fluid or bulky lymphadenopathy is identified. Impression: No acute traumatic injury or acute inflammatory process identified within the abdomen or pelvis, with in noncontrast limitations. Moderate degenerative changes of the lumbosacral spine, which is likely the source for the patient's back pain. Consider MRI on a nonemergent basis for further evaluation, if indicated. Hepatic steatosis and additional findings, as above. Reported By:
--- NOTE | 2018-07-04 17:41 | RAD ---
HISTORY: Right knee pain status post fall. Study: Three views of the right knee. Comparison: MRI right knee dated June 26, 2018 and right knee series dated June 25, 2018. Findings: No evidence for acute cortical disruption or dislocation. Moderate tricompartmental osteoarthritis. A loose body is again seen within the popliteal fossa that is within a Langford's cyst on the comparison MRI. No significant effusion. IMPRESSION: No acute osseous abnormality. Reported By:
[2018-07-04 17:53] LABS: BASOPHILS # (AUTO) 0.2 X10^3/uL (0.0-0.1); BASOPHILS % (AUTO) 2.1 % (0.2-1.0); EOSINOPHILS # (AUTO) 0.1 x10^3/uL (0.0-0.2); EOSINOPHILS % (AUTO) 0.8 % (0.9-2.9); HEMATOCRIT 38.3 % (36.0-47.0); HEMOGLOBIN 12.7 g/dL (12.0-16.0); LYMPHOCYTES # (AUTO) 0.8 X10^3/uL (1.3-2.9); MEAN CORPUSCULAR HEMOGLOBIN 31.8 pg (27.0-34.0); MEAN CORPUSCULAR HGB CONC 33.3 g/dL (33.0-35.0); MEAN CORPUSCULAR VOLUME 95.6 fL (80.0-100.0); MEAN PLATELET VOLUME 9.5 fL (7.4-11.0); MONOCYTES # (AUTO) 0.7 x10^3/uL (0.3-0.8); MONOCYTES % (AUTO) 7.3 % (0.0-13.0); NEUTROPHILS # (AUTO) 7.9 x10^3/uL (2.2-4.8); NEUTROPHILS % (AUTO) 81.8 % (42.0-75.0); PLATELET COUNT 265 X10^3/uL (150.0-450.0); WHITE BLOOD COUNT 9.7 X10^3/uL (3.6-10.0)
[2018-07-04 18:03] LABS: ALANINE AMINOTRANSFERASE 28 Units/L (12-78); ALBUMIN 3.4 g/dL (3.4-5.0); ALKALINE PHOSPHATASE 51 Units/L (46-116); ASPARTATE AMINO TRANSFERASE 23 Units/L (15-37); BLOOD UREA NITROGEN 24 mg/dL (7-18); CALCIUM 9.3 mg/dL (8.5-10.1); CARBON DIOXIDE 33.8 mmol/L (21-32); CHLORIDE 99 mmol/L (98-107); COR NA(FOR HYPERGLY) 137 mmol/L (136-145); CREATININE 1.69 mg/dL (0.55-1.02); SODIUM 137 mmol/L (136-145); TOTAL PROTEIN 7.3 g/dL (6.4-8.2); eGFR NON BLACK RACES 31 (>60)
--- NOTE | 2018-07-04 18:13 | RAD ---
Right ankle, three views Indication: Fall Comparison: None Findings: No acute fracture or malalignment of the right ankle is identified. Mild midfoot DJD and hi ndfoot enthesopathy noted. There is no appreciable joint effusion. Nonspecific generalized subcutaneo us edema noted. There is no localized soft tissue swelling. Impression: Nonspecific generalized subcutaneous edema without acute osseous abnormality. Reported By:
[2018-07-04] MEDS ORDERED: NS 1000 ML 1,000 ML ONE (20:33)
[2018-07-04] MEDS: NS 1000 ML 1,000 ML IV SCH (21:02)
--- NOTE | 2018-07-04 21:35 | CT ---
HISTORY: Hospitalized, pain,, weakness, fall Study: CT brain without contrast Comparison: None Technique: Multiple axial images of the brain were obtained from the skull base to the vertex without administra tion of IV contrast. Findings: Imaging of the brain demonstrates no intracranial hemorrhage, mass effect, or midline shift. There is no CT evidence to suggest acute or early subacute iinfarct . Global atrophy is noted with ex vacuo d ilatation of the ventricles. The basilar cisterns are patent. The bony structures are intact. A tiny right mastoid effusion is incidentally noted. IMPRESSION: 1. No acute intracranial process evident Reported By:
[2018-07-04] MEDS ORDERED: MORPHINE SULFATE INJ 2 MG INJ IVP PRN (21:57)
[2018-07-04] MEDS ORDERED: ZOFRAN INJ 4 MG VIAL IVP PRN (21:57)
[2018-07-04] MEDS ORDERED: VISTARIL PO PRN (21:57)
[2018-07-04] MEDS ORDERED: NS 1000 ML 1,000 ML IV SCH (22:30)
[2018-07-04] MEDS ORDERED: ZANAFLEX PO PRN (22:30)
[2018-07-04 22:55] VITALS: BMI 25.8
[2018-07-04] MEDS ORDERED: CIPRO TAB 500 MG PO SCH (23:45)
[2018-07-04] MEDS: LOPRESSOR TAB 50 MG PO SCH (23:53)
[2018-07-04] MEDS: COLACE CAP 100 MG PO SCH (23:53)
[2018-07-04] MEDS: MILK OF MAGNESIA PO SCH (23:53)
[2018-07-05 06:27] LABS: BASOPHILS % (AUTO) 0.6 % (0.2-1.0); EOSINOPHILS # (AUTO) 0.2 x10^3/uL (0.0-0.2); EOSINOPHILS % (AUTO) 2.9 % (0.9-2.9); HEMATOCRIT 35.1 % (36.0-47.0); HEMOGLOBIN 11.8 g/dL (12.0-16.0); LYMPHOCYTES # (AUTO) 1.1 X10^3/uL (1.3-2.9); LYMPHOCYTES % (AUTO) 15.2 % (21.0-51.0); MEAN CORPUSCULAR HEMOGLOBIN 31.8 pg (27.0-34.0); MEAN CORPUSCULAR HGB CONC 33.4 g/dL (33.0-35.0); MEAN CORPUSCULAR VOLUME 95.2 fL (80.0-100.0); MEAN PLATELET VOLUME 9.6 fL (7.4-11.0); MONOCYTES # (AUTO) 0.7 x10^3/uL (0.3-0.8); NEUTROPHILS # (AUTO) 5.3 x10^3/uL (2.2-4.8); NEUTROPHILS % (AUTO) 71.3 % (42.0-75.0); PLATELET COUNT 243 X10^3/uL (150.0-450.0); RED BLOOD COUNT 3.69 X10^6/uL (3.5-5.4); RED CELL DISTRIBUTION WIDTH 14.1 % (11.6-16.5); WHITE BLOOD COUNT 7.4 X10^3/uL (3.6-10.0)
[2018-07-05 07:02] LABS: ALANINE AMINOTRANSFERASE 25 Units/L (12-78); ALBUMIN 2.9 g/dL (3.4-5.0); ALKALINE PHOSPHATASE 45 Units/L (46-116); ASPARTATE AMINO TRANSFERASE 23 Units/L (15-37); BLOOD UREA NITROGEN 26 mg/dL (7-18); CALCIUM 8.6 mg/dL (8.5-10.1); CARBON DIOXIDE 36.2 mmol/L (21-32); CHLORIDE 102 mmol/L (98-107); COR CA(FOR HYPOALB) 9.5 mg/dL (8.5-10.1); CREATININE 1.84 mg/dL (0.55-1.02); SODIUM 139 mmol/L (136-145); TOTAL PROTEIN 6.5 g/dL (6.4-8.2); eGFR NON BLACK RACES 28 (>60)
[2018-07-05] MEDS ORDERED: ULTRAM PO PRN (07:43)
[2018-07-05] MEDS ORDERED: ZESTRIL TAB 20 MG ONE (08:47)
[2018-07-05] MEDS: ZESTRIL TAB 20 MG PO SCH (08:57)
[2018-07-05] MEDS: EVISTA PO SCH (08:57)
[2018-07-05] MEDS: TRICOR TAB 48 MG PO SCH (08:57)
[2018-07-05] MEDS: PROTONIX TAB 40 MG PO SCH (08:57)
[2018-07-05] MEDS: MILK OF MAGNESIA PO SCH ×2 (08:58→21:39)
[2018-07-05] MEDS ORDERED: CIPRO TAB 500 MG PO SCH ×3 (09:00→18:00)
[2018-07-05] MEDS ORDERED: HYDROCHLOROTHIAZIDE 25 MG TAB PO SCH (09:00)
[2018-07-05] MEDS ORDERED: PATIENT'S HOME MEDICATION (Fenofibrate [Fenofibrate] 1 TAB) PO SCH (09:00)
[2018-07-05] MEDS: LOPRESSOR TAB 50 MG PO SCH ×2 (09:00→21:39)
[2018-07-05] MEDS ORDERED: CIPRO IV 400 MG PREMIX* 400 MG/200 ML IV.SOLN. IV SCH (10:00)
[2018-07-05] MEDS: TORADOL 15 MG VIAL IVP SCH ×3 (11:00→22:31)
[2018-07-05] MEDS: NS 1000 ML 1,000 ML IV SCH (11:07)
[2018-07-05] MEDS: LOVENOX INJ 40 MG SYR SC SCH (17:22)
--- NOTE | 2018-07-05 21:01 | DR.H&P ---
H&P - History & Physical for Day of: H&P Date: 07/04/18 - Chief Complaint Chief Complaint: lower back pain, abdominal pain, right hip and foot pain, confusion. - History of Present Illness History of Present Illness: is a 82 year old patient of ours who presented to the emergency room with reports of increasing lower back pain, abdominal pain, right hip, knee, and foot pain. Patient reports symptoms worsened last night and patient became slightly confused with incoordination. She was recently hospitalized for a right knee injury following a fall. She was also sent home on antibiotics for a urinary tract infection, but reports that she has been unable to take them due to nausea. On arrival, vitals were 98.7, 91 , 20, 96% RA, 141/59. Labs were obtained. Abnormal lab values include the following: Abnormal Labs: Carbon Dioxide 33.8, BUN 24, Creatinine 1.69, GFR af 37, GFR non 31, Glucose 113, A/G Ratio 0.9. Urinalysis: Catherized, Hazy, Protein 1+, Ketones 1+, Occult Blood 2+, Urobilingen 1+, Lek Est 1+, RBC 0-2, WBC 0-2, Bacteria Trace, Hyaline Casts Rare, Mucus Rare. Abdomen and pelvis CT obtained which revealed moderate changes of the lumbosacral spine, which is likely the source for the patient's back pain. Pelvis CT revealed nondisplaced fracture of the superior coccyx. A brain CT was obtained and revealed: No acute intracranial process evident. She was given Morphine 4mg IM for pain with continued reports of severe pain. Patient admitted to the hospital as observation for pain control and started on Morphine 2mg IV every 6 hours as needed, Normal saline at 50ml/hr, and home medications were resumed. We will follow up with AM labs and continue to monitor. - Past Medical History Past Medical History: Hypertension, GERD - Past Surgical History Surgical History: Hysterectomy - Family History Family Medical History: Hypertension - Social History Does patient currently use any type of tobacco product: No Have you used tobacco products in the last 12 months: No Type of Tobacco Use: None Does any household member use tobacco: No Alcohol Use: Rarely Drug Use: None - Medications Home Medications: No Known Drug Allergies Allergy (Verified 06/25/18 16:41) CONTINUE taking the following medications ondansetron HCl [Zofran] 4 mg PO Q6H PRN 07/04/18 [History] tramadol 50 mg PO Q6H PRN 07/04/18 [History] - Review of Systems Constitutional: Weakness Eyes: No Symptoms Reported ENT: No Symptoms Reported Respiratory: No Symptoms Reported Cardiovascular: No Symptoms Reported Gastrointestinal: Abdominal Pain Genitourinary: No Symptoms Reported Musculoskeletal: See HPI, Back Pain, Leg Pain, Foot Pain Skin: Bruising (right leg bruising ) Neurological: Weakness, Incoordination, Confusion - Physical Exam Vital Signs: Temperature 98.5 F Pulse Rate [Left Brachial] 71 Pulse Rate [Right Brachial] 78 Pulse Rate 91 Respiratory Rate 20 Blood Pressure [Left Arm] 109/56 Blood Pressure [Right Arm] 143/63 Blood Pressure 141/59 O2 Sat by Pulse Oximetry 98 Oriented: Person Eyes: Normal Ear: Normal Nose: Normal Throat: Normal Respiratory: Diminished Throughout Cardiovascular: Normal. negative: S3, S4, Murmur : Normal Auscultation: Bowel Sounds: Normal Palpation: Normal Tenderness: RLQ, Mild. negative: Rebound, Guarding, Rigidity Skin: Bruising (right leg scattered bruising ) Musculoskeletal: Normal Psychiatric: Normal Mood Description: Calm Affect: Normal Speech Pattern: Clear - Assessment/Plan (1) Intractable back pain Status: Acute Plan: morphine 2mg iv q6h prn pain, continue home meds, continue to monitor (2) Fracture of coccyx Qualifiers: Encounter type: initial encounter Fracture type: closed Qualified Code(s) : S32.2XXA - Fracture of coccyx, initial encounter for closed fracture Status: Acute Plan: morphine 2mg iv q6h prn pain, continue home meds, continue to monitor (3) Dehydration Status: Acute Plan: normal saline at 50ml/hr, continue to monitor - Allergies Allergies/Adverse Reactions: Allergies Allergy/AdvReac Type Severity Reaction Status Date / Time No Known Drug Allergies Allergy Verified 06/25/18 16:41
[2018-07-05] MEDS: COLACE CAP 100 MG PO SCH (21:38)
[2018-07-05] MEDS ORDERED: CALAN SR 240 MG PO SCH (23:30)
[2018-07-06] MEDS: TORADOL 15 MG VIAL IVP SCH (05:07)
[2018-07-06 05:51] LABS: BASOPHILS # (AUTO) 0.1 X10^3/uL (0.0-0.1); BASOPHILS % (AUTO) 0.9 % (0.2-1.0); EOSINOPHILS # (AUTO) 0.3 x10^3/uL (0.0-0.2); EOSINOPHILS % (AUTO) 4.6 % (0.9-2.9); HEMATOCRIT 33.3 % (36.0-47.0); HEMOGLOBIN 11.3 g/dL (12.0-16.0); LYMPHOCYTES # (AUTO) 1.4 X10^3/uL (1.3-2.9); LYMPHOCYTES % (AUTO) 20.5 % (21.0-51.0); MEAN CORPUSCULAR HEMOGLOBIN 32.1 pg (27.0-34.0); MEAN CORPUSCULAR VOLUME 94.5 fL (80.0-100.0); MEAN PLATELET VOLUME 9.5 fL (7.4-11.0); MONOCYTES # (AUTO) 0.8 x10^3/uL (0.3-0.8); MONOCYTES % (AUTO) 11.3 % (0.0-13.0); NEUTROPHILS # (AUTO) 4.2 x10^3/uL (2.2-4.8); NEUTROPHILS % (AUTO) 62.7 % (42.0-75.0); PLATELET COUNT 218 X10^3/uL (150.0-450.0); RED BLOOD COUNT 3.53 X10^6/uL (3.5-5.4); RED CELL DISTRIBUTION WIDTH 13.2 % (11.6-16.5); WHITE BLOOD COUNT 6.7 X10^3/uL (3.6-10.0)
[2018-07-06 06:01] LABS: ALANINE AMINOTRANSFERASE 22 Units/L (12-78); ALBUMIN 2.5 g/dL (3.4-5.0); ALKALINE PHOSPHATASE 45 Units/L (46-116); ASPARTATE AMINO TRANSFERASE 23 Units/L (15-37); BLOOD UREA NITROGEN 30 mg/dL (7-18); CARBON DIOXIDE 31.6 mmol/L (21-32); CHLORIDE 99 mmol/L (98-107); COR CA(FOR HYPOALB) 9.2 mg/dL (8.5-10.1); SODIUM 134 mmol/L (136-145); TOTAL PROTEIN 5.9 g/dL (6.4-8.2); eGFR NON BLACK RACES 24 (>60)
[2018-07-06] MEDS ORDERED: CIPRO IV 400 MG PREMIX* 400 MG/200 ML IV.SOLN. IV SCH (08:00)
[2018-07-06] MEDS ORDERED: ZESTRIL TAB 20 MG ONE ×2 (09:08→09:31)
[2018-07-06] MEDS: LOPRESSOR TAB 50 MG PO SCH (09:15)
[2018-07-06] MEDS: MILK OF MAGNESIA PO SCH (09:15)
[2018-07-06] MEDS: EVISTA PO SCH (09:15)
[2018-07-06] MEDS: ZESTRIL TAB 20 MG PO SCH (09:15)
[2018-07-06] MEDS: LOVENOX INJ 40 MG SYR SC SCH (09:15)
[2018-07-06] MEDS: TRICOR TAB 48 MG PO SCH (09:15)
[2018-07-06] MEDS: PROTONIX TAB 40 MG PO SCH (09:15)
[2018-07-06 13:16] VITALS: BP 144/67
--- NOTE | 2018-09-11 23:56 | DR.CARTERD ---
- Discharge Summary for: Discharge Summary for Date of:: 07/06/18 - Admission Date Date of Admission: 07/04/18 - Admission Diagnoses Admission Diagnosis: (1) Intractable back pain (2) Fracture of coccyx (3) Dehydration - Discharge Date Discharge Date: 07/06/18 - Discharge Diagnoses Discharge Diagnosis: (1) Intractable back pain (2) Fracture of coccyx (3) Dehydration - Hospital Course Hospital Course: is a 82 year old patient of ours who presented to the emergency room with reports of increasing lower back pain, abdominal pain, right hip, knee, and foot pain. Patient reported symptoms worsened last night and patient became slightly confused with incoordination. She was recently hospitalized for a right knee injury following a fall. She was also sent home on antibiotics for a urinary tract infection, but reported that she had been unable to take them due to nausea. On arrival, vitals were 98.7, 91, 20, 96% RA, 141/59. Labs were obtained. Abnormal lab values included the following: Abnormal Labs: Carbon Dioxide 33.8, BUN 24, Creatinine 1.69, GFR af 37, GFR non 31, Glucose 113, A/G Ratio 0.9. Urinalysis: Catherized, Hazy, Protein 1+, Ketones 1+, Occult Blood 2+, Urobilingen 1+, Lek Est 1+, RBC 0-2, WBC 0-2, Bacteria Trace, Hyaline Casts Rare, Mucus Rare. Abdomen and pelvis CT obtained which revealed moderate changes of the lumbosacral spine, which is likely the source for the patient's back pain. Pelvis CT revealed nondisplaced fracture of the superior coccyx. A brain CT was obtained and revealed: No acute intracranial process evident. She was given Morphine 4mg IM for pain with continued reports of severe pain. Patient admitted to the hospital as observation for pain control and started on Morphine 2mg IV every 6 hours as needed, Normal saline at 50ml/hr, and home medications were resumed. We continued to monitor and continued pain management. On day th ree, patient reported back pain was improved. She denied abdominal pain. She was alert and oriented. Vital signs stable. Labs wnl. We planned for discharge. Instructions for medications and follow up were discussed with patient and family, both voiced understanding. Patient discharged home in stable condition with family. - Discharge Medications Discharge Medications: Home Medication List ondansetron HCl [Zofran] 4 mg PO Q6H PRN 07/04/18 [History] tramadol 50 mg PO Q6H PRN 07/04/18 [History] cefdinir 300 mg PO BID #10 cap 07/06/18 [Rx] Prescriptions: cefdinir Alex Rahman fenofibrate 1 tab PO DAILY 06/25/18 lisinopril 20 mg PO DAILY 06/25/18 metoprolol tartrate 50 mg PO BID 06/25/18 pantoprazole 40 mg PO DAILY 06/25/18 raloxifene 60 mg PO DAILY 06/25/18 verapamil 240 mg PO HS 06/25/18 hydrocodone-acetaminophen [[place]] 1 tab PO Q6H PRN #30 tab 06/30/18 tizanidine 4 mg PO Q8H PRN #30 tab 06/30/18 - Discharge Disposition Discharge Disposition: Patient is to follow up with POP López in one week.
== END 2018-07-06 15:35 | disposition home health service (06) ==
LOC: MED/SURG 15:05 → ER 15:05 → MED/SURG 22:06
PROVIDERS: ADMIT Internal Medicine; ATTEND Internal Medicine
DX: M54.5 Low back pain; W18.39XA Other fall on same level, initial encounter; R94.4 Abnormal results of kidney function studies; R26.89 Other abnormalities of gait and mobility; S32.2XXA Fracture of coccyx, initial encounter for closed fracture; E86.0 Dehydration; R10.31 Right lower quadrant pain; M25.551 Pain in right hip; I10 Essential (primary) hypertension; Z79.899 Other long term (current) drug therapy; K21.9 Gastro-esophageal reflux disease without esophagitis; M79.671 Pain in right foot; M25.561 Pain in right knee
CPT/HCPCS: 36415; 51702; 70450; 72192; 73560; 73610; 73630; 74176; 80053; 81001; 85025; 94760; 96365; 96367; 96372; 97163; 97166; 97530; 99283; 99284; A4216; A4222; G0378; J0744; J1650; J1885; J2270; J2405; J7030